=== PATIENT | female | born 1970 | race Caucasian/White ===

== ENCOUNTER 2019-07-21 08:39 | Emergency (ER) | payer BC, OTHER ==
--- NOTE | 2019-07-21 09:31 | EDM.PDOC ---
ED HPI GENERAL MEDICAL PROBLEM - General Chief Complaint: Cardiovascular Problem Stated Complaint: FAST HEART RATE Time Seen by Provider: 07/21/19 08:45 Source of Information: Reports: Patient, RN Notes Reviewed - History of Present Illness INITIAL COMMENTS - FREE TEXT/NARRATIVE: 48 yr old female with intermitent palpitations for the last month or so worse last PM and during the night. She has had some palpitations this AM but now better after taking AM meds awhile ago. She has also been having dyspnea off and on, had a coughing spell last evening, coughed up some clear phlegm but no further coughing after that. No fever, chills, sore throat or sinus problems. She did have severe L back pain last evening that does continue this AM but less severe. Hx Htn. She is not diabetic and does not smoke. Left Middle Back Pain Score (Numeric/FACES): 8 - Related Data Allergies Allergy/AdvReac Type Severity Reaction Status Date / Time meperidine [From Demerol] Allergy Itching Verified 08/04/16 22:52 Penicillins Allergy Rash Verified 08/04/16 22:52 prochlorperazine Allergy Seizure Verified 08/04/16 22:52 [From Compazine] rizatriptan [From Maxalt] Allergy Swollen Verified 07/21/19 09:08 Tongue Home Meds: Home Meds Amitriptyline [Elavil] 25 mg PO BEDTIME 08/04/16 [History] Aspirin 81 mg PO DAILY 08/04/16 [History] Cholecalciferol (Vitamin D3) [Vitamin D3] 1,000 unit PO DAILY 08/04/16 [History] Cranberry 500 mg PO DAILY 08/04/16 [History] Fish Oil/[place]-3 Fatty Acids [Fish Oil] 1 each PO DAILY 08/04/16 [History] Metoprolol Tartrate [Lopressor] 50 mg PO BID 08/04/16 [History] Zolpidem [Ambien] 10 mg PO BEDTIME 08/04/16 [History] Cyclobenzaprine [Flexeril] 10 mg PO TID PRN #14 tab 07/21/19 [Rx] Hydrocodone/Acetaminophen [Mead 5-325 Tablet] 1 each PO Q6HR PRN #20 tablet [Rx] Venlafaxine [Effexor XR] 37.5 mg PO 07/21/19 [History] Past Medical History HEENT History: Reports: Impaired Vision, Other (See Below) Other HEENT History: c/o difficulty swallowing Cardiovascular History: Reports: Hypertension, Other (See Below) Other Cardiovascular History: [place] Respiratory History: Reports: Asthma Gastrointestinal History: Reports: GERD Psychiatric History: Reports: Anxiety, Depression Other Psychiatric History: sleep disorders Social & Family History - Family History Family Medical History: Noncontributory - Tobacco Use Smoking Status *Q: Never Smoker - Caffeine Use Caffeine Use: Reports: Coffee - Recreational Drug Use Recreational Drug Use: No Drug Use in Last 12 Months: No - Living Situation & Occupation Living situation: Reports: Occupation: Employed ED ROS GENERAL - Review of Systems Review Of Systems: See Below Constitutional: Denies: Fever, Chills HEENT: Denies: Rhinitis, Sinus Problem, Throat Pain Respiratory: Reports: Shortness of Breath, Pleuritic Chest Pain (mild), Cough ( last evening, now gone). Denies: Wheezing Cardiovascular: Reports: Chest Pain, Dyspnea on Exertion, Palpitations GI/Abdominal: Denies: Abdominal Pain, Nausea, Vomiting Musculoskeletal: Reports: Back Pain. Denies: Shoulder Pain, Arm Pain Skin: Reports: No Symptoms Neurological: Denies: Numbness, Tingling, Weakness ED EXAM, GENERAL - Physical Exam Exam: See Below General Appearance: Alert, No Apparent Distress Eye Exam: Bilateral Eye: PERRL Nose: Normal Inspection Throat/Mouth: Normal Inspection, Normal Oropharynx Head: Atraumatic. No: Facial Swelling Neck: Supple, Full Range of Motion. No: Lymphadenopathy (L), Lymphadenopathy (R ) Respiratory/Chest: No Respiratory Distress, Lungs Clear, Normal Breath Sounds. No: Rales, Rhonchi, Wheezing Cardiovascular: Regular Rate, Rhythm GI/Abdominal: Soft, Non-Tender Extremities: Normal Inspection, Normal Range of Motion. No: Leg Pain, Increased Warmth, Redness Neurological: Alert, Oriented, No Motor/Sensory Deficits EKG INTERPRETATION EKG Date: 07/21/19 Rhythm: NSR [place]: Normal P-Wave: Present QRS: Normal ST-T: Normal QT: Normal Course - Vital Signs Last Recorded V/S: Last Vital Signs Temp 97.1 F 07/21/19 08:48 Pulse 80 07/21/19 11:16 Resp 20 07/21/19 11:16 BP 123/86 07/21/19 11:16 Pulse Ox 95 07/21/19 11:16 - Orders/Labs/Meds Orders: Active Orders 24 hr Category Date Time Status EKG 12 Lead [EKG Documentation Completion] [RC] STAT Care 07/21/19 09:21 Active Holter Monitor 48 Hours [RC] .PRN Care 07/21/19 10:43 Active Labs: Laboratory Tests 07/21/19 07/21/19 07/21/19 Range/Units 09:19 09:19 09:19 WBC 6.88 (3.98-10.04) K/mm3 RBC 4.65 (3.98-5.22) M/mm3 Hgb 13.4 (11.2-15.7) gm/dl Hct 39.5 (34.1-44.9) % MCV 84.9 (79.4-94.8) fl MCH 28.8 (25.6-32.2) pg MCHC 33.9 (32.2-35.5) g/dl RDW Std Deviation 40.2 (36.4-46.3) fL Plt Count 308 (182-369) K/mm3 MPV 9.8 (9.4-12.3) fl Neut % (Auto) 54.0 (34.0-71.1) % Lymph % (Auto) 33.9 (19.3-51.7) % [place] % (Auto) 8.7 (4.7-12.5) % Eos % (Auto) 2.9 (0.7-5.8) Baso % (Auto) 0.4 (0.1-1.2) % Neut # (Auto) 3.71 (1.56-6.13) K/mm3 Lymph # (Auto) 2.33 (1.18-3.74) K/mm3 [place] # (Auto) 0.60 H (0.24-0.36) K/mm3 Eos # (Auto) 0.20 (0.04-0.36) K/mm3 Baso # (Auto) 0.03 (0.01-0.08) K/mm3 D-Dimer, Quantitative 0.26 (0.19-0.50) mg/L Sodium 140 (136-145) mEq/L Potassium 3.8 (3.5-5.1) mEq/L Chloride 104 (98-107) mEq/L Carbon Dioxide 26 (21-32) mEq/L Anion Gap 13.8 (5-15) BUN 13 (7-18) mg/dL Creatinine 0.8 (0.55-1.02) mg/dL Est Cr Clr Drug Dosing 81.81 mL/min Estimated GFR (MDRD) > 60 (>60) mL/min BUN/Creatinine Ratio 16.3 (14-18) Glucose 104 (74-106) mg/dL Calcium 9.2 (8.5-10.1) mg/dL Total Bilirubin 0.2 (0.2-1.0) mg/dL AST 18 (15-37) U/L ALT 24 (14-59) U/L Alkaline Phosphatase 71 (46-116) U/L Troponin I < 0.017 (0.00-0.056) ng/mL Total Protein 7.0 (6.4-8.2) g/dl Albumin 3.4 (3.4-5.0) g/dl Globulin 3.6 gm/dL Albumin/Globulin Ratio 0.9 L (1-2) TSH 3rd Generation 2.261 (0.358-3.74) uIU/mL Meds: Medications Discontinued Medications Generic Name Dose Route Start Last Admin Trade Name Yong PRN Reason Stop Dose Admin Acetaminophen 975 mg 07/21/19 10:42 07/21/19 11:01 Tylenol PO 07/21/19 10:43 975 mg NOW ONE Administration Ketorolac Tromethamine 30 mg 07/21/19 10:45 07/21/19 11:01 Toradol IVPUSH 30 mg ONETIME KRISTI Administration - Re-Assessments/Exams Free Text/Narrative Re-Assessment/Exam: 07/21/19 10:50 White blood count normal, d-dimer and troponin also did come back normal. Chest x-ray was good, EKG showed no acute findings. When I did go back to visit with her just a few minutes ago she is having more intense back pain and that is her major symptom at this time. We'll give some Toradol 30 mg IV, Tylenol 975 by mouth. Due to the frequent palpitations will send her home on a 48 hour Holter monitor. Discharge instructions as documented. Departure - Departure Time of Disposition: 10:54 Disposition: Home, Self-Care 01 Condition: Fair Clinical Impression: Palpitations, Atypical chest pain, Back pain Prescriptions: Hydrocodone/Acetaminophen [Mead 5-325 Tablet] 1 each PO Q6HR PRN #20 tablet PRN Reason: Pain Cyclobenzaprine [Flexeril] 10 mg PO TID PRN #14 tab PRN Reason: Muscle Spasm Instructions: Palpitations, [id number] Referrals: PCP,None [Primary Care Provider] - Forms: ED Department Discharge, ED Return to Work/School Form Additional Instructions: Rest back, no heavy lifting, alternate ice and heat as needed, continue Advil or Motrin 3 times daily as needed, you may take Tylenol in between doses for extra pain relief or hydrocodone if needed for severe pain. Flexeril 10 mg 2-3 times daily for muscle spasm as needed. Prescriptions have been sent electronically to [facility] [employer] [facility] 48 hour holter moniter to moniter and record your heart rythm for the next 48 hours. Follow-up with one of our clinic providers early next week for recheck, call [phone] for appointment. Return to ED as needed if symptoms worsening in any way. Sepsis Event Note - Evaluation Sepsis Screening Result: No Definite Risk - Focused Exam Vital Signs: Vital Signs Temp Pulse Resp BP Pulse Ox 07/21/19 11:16 80 20 123/86 95 07/21/19 08:48 97.1 F 83 24 H 124/94 H 95 Date Exam was Performed: 07/21/19 Time Exam was Performed: 12:37 - My Orders Last 24 Hours: My Active Orders 07/21/19 09:21 EKG 12 Lead [EKG Documentation Completion] [RC] STAT 07/21/19 10:43 Holter Monitor 48 Hours [RC] .PRN - Assessment/Plan Last 24 Hours: My Active Orders 07/21/19 09:21 EKG 12 Lead [EKG Documentation Completion] [RC] STAT 07/21/19 10:43 Holter Monitor 48 Hours [RC] .PRN
--- NOTE | 2019-07-21 10:19 | CR ---
Chest: PA and lateral views of the chest were obtained. Comparison: Prior chest x-ray of 08/04/16. Heart size is normal. Tortuous thoracic aorta is seen. Lungs are clear with no acute parenchymal change. Bony structures appear within normal limits for the patient's age. Impression: 1. Nothing acute is appreciated on two-view chest x-ray. Diagnostic code #1 This report was dictated in [place] Standard Time
[2019-07-21] MEDS ORDERED: Acetaminophen 325 MG Tab PO ONE (10:42)
[2019-07-21] MEDS ORDERED: Ketorolac 30 MG/ML SDV IVPUSH SCH (10:45)
[2019-07-21 11:28] VITALS: BP 123/86; PULSE 80
== END 2019-07-21 11:16 | disposition home or self-care (01) ==
LOC: JD.ED 08:39
DX: R07.89 Other chest pain (principal); R00.2 Palpitations; M54.5 Low back pain; I10 Essential (primary) hypertension; Z88.0 Allergy status to penicillin; Z88.8 Allergy status to other drugs, medicaments and biological substances; Z79.82 Long term (current) use of aspirin; Z79.899 Other long term (current) drug therapy
CPT/HCPCS: 36415; 71046; 80053; 84443; 84484; 85025; 85379; 93005; 93225; 93226; 96374; 99285; A9270; J1885; 93010; 99284

== ENCOUNTER 2020-12-23 11:14 | Inpatient (IN) | payer OTHER ==
[2020-12-23] MEDS ORDERED: Sodium Chloride 0.9% 10 ML Syringe FLUSH PRN (11:33)
[2020-12-23] MEDS ORDERED: Dexamethasone 4 MG Tab PO ONE (11:53)
--- NOTE | 2020-12-23 12:03 | EDM.PDOC ---
ED HPI GENERAL MEDICAL PROBLEM - General Chief Complaint: Respiratory Problem Stated Complaint: SOB/COVID+ Time Seen by Provider: 12/23/20 11:33 Source of Information: Reports: Patient, RN Notes Reviewed History Limitations: Reports: No Limitations - History of Present Illness INITIAL COMMENTS - FREE TEXT/NARRATIVE: Patient is a 50-year-old female presenting to the emergency department with complaints of shortness of breath, body aches, fever, cough, headache, and weakness. Symptoms began on December 10. She was diagnosed as Covid positive on December 11. She states symptoms have been consistent since that time. She reports pain with deep breathing as well as violent cough triggered by deep breathing. She has been checking her oxygen saturations at home and report they are between 81 and 86% on room air. On arrival to ER, oxygen saturation was found to be 86% on room air. She was placed on 2 L of oxygen by nasal cannula and is saturating in the low 90s at this time. She denies any chronic respiratory conditions, but does have a history of hypertension and [place] Parkinson's White. She does report diarrhea as well. Headache Pain Score (Numeric/FACES): 7 - Related Data Allergies Allergy/AdvReac Type Severity Reaction Status Date / Time rizatriptan [From Maxalt] Allergy Severe Swollen Verified 12/23/20 11:32 Tongue Penicillins Allergy Intermediate Rash Verified 12/23/20 15:07 meperidine [From Demerol] Allergy Mild Itching Verified 12/23/20 15:07 prochlorperazine AdvReac Severe Seizure Verified 12/23/20 11:32 [From Compazine] Home Meds: Home Meds Amitriptyline [Elavil] 50 mg PO BEDTIME 08/04/16 [History] Aspirin 81 mg PO DAILY 08/04/16 [History] Cholecalciferol (Vitamin D3) [Vitamin D3] 1,000 unit PO DAILY 08/04/16 [History] Cranberry 500 mg PO DAILY 08/04/16 [History] Fish Oil/[place]-3 Fatty Acids [Fish Oil] 1 each PO DAILY 08/04/16 [History] Metoprolol Tartrate [Lopressor] 50 mg PO BID 08/04/16 [History] Zolpidem [Ambien] 10 mg PO BEDTIME PRN 08/04/16 [History] Venlafaxine [Effexor XR] 37.5 mg PO DAILY 07/21/19 [History] estradioL [Estradiol] 1 mg PO DAILY 12/23/20 [History] hydroCHLOROthiazide [Hydrochlorothiazide] 25 mg PO DAILY 12/23/20 [History] Past Medical History HEENT History: Reports: Impaired Vision, Other (See Below) Other HEENT History: c/o difficulty swallowing Cardiovascular History: Reports: Hypertension, Other (See Below) Other Cardiovascular History: Rafael-Parkinson's White Respiratory History: Reports: Asthma Gastrointestinal History: Reports: [employer] History: Reports: Psychiatric History: Reports: Anxiety, Depression Other Psychiatric History: sleep disorders Endocrine/Metabolic History: Reports: Obesity/BMI 30+ - Past Surgical History Female Surgical History: Reports: Section, Hysterectomy Social & Family History - Family History Family Medical History: No Pertinent Family History - Tobacco Use Tobacco Use Status *Q: Never Tobacco User - Caffeine Use Caffeine Use: Reports: Coffee - Recreational Drug Use Recreational Drug Use: No - Living Situation & Occupation Living situation: Reports: Occupation: Employed ED ROS GENERAL - Review of Systems Review Of Systems: See Below Constitutional: Reports: Fever, Chills, Weakness, Fatigue HEENT: Reports: No Symptoms Respiratory: Reports: Shortness of Breath, Pleuritic Chest Pain, Cough, Sputum Cardiovascular: Reports: Chest Pain, Dyspnea on Exertion. Denies: Syncope Endocrine: Reports: No Symptoms GI/Abdominal: Reports: Diarrhea, Nausea. Denies: Abdominal Pain : Reports: No Symptoms. Denies: Dysuria Musculoskeletal: Reports: Other (generalized body aches) Neurological: Reports: Headache Psychiatric: Reports: No Symptoms Hematologic/Lymphatic: Reports: No Symptoms Immunologic: Reports: No Symptoms ED EXAM, GENERAL - Physical Exam Exam: See Below Exam Limited By: No Limitations General Appearance: Alert, WD/WN, No Apparent Distress, Anxious Eye Exam: Bilateral Eye: PERRL Respiratory/Chest: No Respiratory Distress, No Accessory Muscle Use, Chest Non- Tender, Decreased Breath Sounds, Crackles (bilateral bases), Other (shallow respirations) Cardiovascular: Normal Peripheral Pulses, Regular Rate, Rhythm, No Edema, No Gallop, No JVD, No Murmur, No Rub GI/Abdominal: Normal Bowel Sounds, Soft, Non-Tender, No Organomegaly, No Distention, No Abnormal Bruit, No Mass Neurological: Alert, Oriented, CN II-XII Intact, Normal Cognition, Normal Gait, Normal Reflexes, No Motor/Sensory Deficits Psychiatric: Normal Affect, Normal Mood Skin Exam: Warm, Dry, Intact, Normal Color, No Rash #1 Interpretation EKG Date: 12/23/20 Time: 11:25 Rhythm: NSR Rate (Beats/Min): 91 [place]: Normal P-Wave: Present QRS: Normal ST-T: Normal QT: Normal EKG Interpretation Comments: EKG interpreted by Dr. Phipps. Course - Vital Signs Last Recorded V/S: Last Vital Signs Temp 97.9 F 12/24/20 15:39 Pulse 88 12/24/20 20:07 Resp 20 12/24/20 15:39 BP 142/81 H 12/24/20 20:07 Pulse Ox 93 L 12/24/20 20:44 - Orders/Labs/Meds Orders: Medication Orders Acetaminophen (Acetaminophen 325 Mg Tab) 650 mg PO Q4H PRN PRN Reason: Pain (Mild 1-3)/fever Last Admin: 12/24/20 20:11 Dose: 650 mg Documented by: DELIA Albuterol (Albuterol 6.7 Gm Inhaler) 0 gm INH Q2H PRN PRN Reason: SOB/Wheezing Last Admin: 12/24/20 14:59 Dose: 2 puff Documented by: Admin: 12/24/20 08:46 Dose: 2 puff Documented by: Admin: 12/23/20 20:56 Dose: 2 puff Documented by: IVÁN Amitriptyline HCl (Amitriptyline 25 Mg Tab) 50 mg PO BEDTIME [facility] Last Admin: 12/24/20 20:10 Dose: 50 mg Documented by: Admin: 12/23/20 20:24 Dose: 50 mg Documented by: RASHAD Aspirin (Aspirin 81 Mg Tab.Chew) 81 mg PO DAILY [facility] Last Admin: 12/24/20 09:44 Dose: 81 mg Documented by: Admin: 12/23/20 16:47 Dose: 81 mg Documented by: BRIEN Benzonatate (Benzonatate 100 Mg Cap) 200 mg PO TID PRN PRN Reason: Cough Last Admin: 12/23/20 16:46 Dose: 200 mg Documented by: BRIEN Cholecalciferol (Cholecalciferol (Vitamin D3) 5,000 Unit Cap) 5,000 unit PO DAILY [facility] Last Admin: 12/24/20 09:45 Dose: 5,000 unit Documented by: Admin: 12/23/20 16:47 Dose: 5,000 unit Documented by: BRIEN Dexamethasone (Dexamethasone 4 Mg Tab) 6 mg PO DAILY [facility] Stop: 01/01/21 09:01 Last Admin: 12/24/20 09:48 Dose: 6 mg Documented by: KASHIF Docusate Sodium (Docusate Sodium 100 Mg Cap) 100 mg PO BID PRN PRN Reason: Constipation Last Admin: 12/23/20 16:46 Dose: 100 mg Documented by: BRIEN Enoxaparin Sodium (Enoxaparin 40 Mg/0.4 Ml Syringe) 40 mg SUBCUT DAILY [facility] Last Admin: 12/24/20 09:49 Dose: 40 mg Documented by: KASHIF Estradiol (Estradiol 0.5 Mg Tab) 1 mg PO DAILY [facility] Last Admin: 12/24/20 09:45 Dose: 1 mg Documented by: KASHIF Famotidine (Famotidine 20 Mg Tab) 20 mg PO BID [facility] Last Admin: 12/24/20 20:07 Dose: 20 mg Documented by: Admin: 12/24/20 09:47 Dose: 20 mg Documented by: Admin: 12/23/20 20:24 Dose: 20 mg Documented by: RASHAD Guaifenesin/Phenylephrine HCl (Guaifenesin/Dextromethorphan 100-10 Mg/5 Ml Soln 5 Ml Cup) 10 ml PO TID@0700,1400,2100 [facility] Last Admin: 12/24/20 20:12 Dose: 10 ml Documented by: Admin: 12/24/20 14:51 Dose: 10 ml Documented by: Admin: 12/24/20 06:06 Dose: 10 ml Documented by: Admin: 12/23/20 20:22 Dose: 10 ml Documented by: RASHAD Azithromycin 500 mg/ Sodium (Chloride) 250 mls @ 250 mls/hr IV Q24H [facility] Stop: 12/25/20 15:59 Last Admin: 12/24/20 14:52 Dose: 250 mls/hr Documented by: Infusion: 12/23/20 17:40 Dose: 250 mls/hr Documented by: Admin: 12/23/20 16:40 Dose: 250 mls/hr Documented by: BRIEN Insulin Human Lispro (Insulin Lispro 100 Unit/Ml 10 Ml Vial) 0 unit SUBCUT QIDACANDBED [facility]; Protocol Last Admin: 12/24/20 17:42 Dose: 1 unit Documented by: Admin: 12/24/20 12:33 Dose: 1 unit Documented by: Admin: 12/24/20 06:06 Dose: Not Given Documented by: Admin: 12/23/20 21:35 Dose: Not Given Documented by: OLGA Magnesium Hydroxide (Magnesium Hydroxide 400 Mg/5 Ml Susp 30 Ml Cup) 30 ml PO Q12H PRN PRN Reason: Constipation Metoprolol Tartrate (Metoprolol Tartrate 50 Mg Tab) 50 mg PO BID [facility] Last Admin: 12/24/20 20:07 Dose: 50 mg Documented by: Admin: 12/24/20 09:46 Dose: 50 mg Documented by: Admin: 12/23/20 20:23 Dose: 50 mg Documented by: RASHAD Ondansetron HCl (Ondansetron 4 Mg/2 Ml Sdv) 4 mg IV Q6H PRN PRN Reason: Nausea/Vomiting Sodium Chloride (Sodium Chloride 0.9% 10 Ml Syringe) 10 ml FLUSH ASDIRECTED PRN PRN Reason: Keep Vein Open Last Admin: 12/23/20 11:43 Dose: 10 ml Documented by: REA Venlafaxine HCl (Venlafaxine 37.5 Mg Cap.Er) 37.5 mg PO DAILY [facility] Last Admin: 12/24/20 09:44 Dose: 37.5 mg Documented by: KASHIF Zinc Sulfate (Zinc Sulfate 220 Mg Cap) 220 mg PO DAILY [facility] Last Admin: 12/24/20 09:46 Dose: 220 mg Documented by: Admin: 12/23/20 16:46 Dose: 220 mg Documented by: BRIEN Zolpidem Tartrate (Zolpidem 10 Mg Tab) 10 mg PO BEDTIME [facility] Last Admin: 12/24/20 20:07 Dose: 10 mg Documented by: Admin: 12/23/20 20:24 Dose: 10 mg Documented by: RASHAD Labs: Laboratory Tests 12/23/20 12/23/20 12/23/20 Range/Units 11:40 11:40 11:40 WBC 5.68 (3.98-10.04) K/mm3 RBC 4.86 (3.98-5.22) M/mm3 Hgb 13.9 (11.2-15.7) gm/dl Hct 40.4 (34.1-44.9) % MCV 83.1 (79.4-94.8) fl MCH 28.6 (25.6-32.2) pg MCHC 34.4 (32.2-35.5) g/dl RDW Std Deviation 38.2 (36.4-46.3) fL Plt Count 274 (182-369) K/mm3 MPV 9.7 (9.4-12.3) fl Neut % (Auto) 67.2 (34.0-71.1) % Lymph % (Auto) 23.8 (19.3-51.7) % [place] % (Auto) 7.7 (4.7-12.5) % Eos % (Auto) 0.4 L (0.7-5.8) Baso % (Auto) 0.5 (0.1-1.2) % Neut # (Auto) 3.82 (1.56-6.13) K/mm3 Lymph # (Auto) 1.35 (1.18-3.74) K/mm3 [place] # (Auto) 0.44 H (0.24-0.36) K/mm3 Eos # (Auto) 0.02 L (0.04-0.36) K/mm3 Baso # (Auto) 0.03 (0.01-0.08) K/mm3 D-Dimer, Quantitative 0.48 (0.19-0.50) mg/L Sodium 137 (136-145) mEq/L Potassium 3.2 L (3.5-5.1) mEq/L Chloride 97 L (98-107) mEq/L Carbon Dioxide 26 (21-32) mEq/L Anion Gap 17.2 H (5-15) BUN 12 (7-18) mg/dL Creatinine 0.9 (0.55-1.02) mg/dL Est Cr Clr Drug Dosing 71.11 mL/min Estimated GFR (MDRD) > 60 (>60) mL/min BUN/Creatinine Ratio 13.3 L (14-18) Glucose 160 H (70-99) mg/dL Hemoglobin A1c ( - 5.6) % Lactic Acid (0.4-2.0) mmol/L Calcium 8.7 (8.5-10.1) mg/dL Total Bilirubin 0.4 (0.2-1.0) mg/dL AST 43 H (15-37) U/L ALT 29 (14-59) U/L Alkaline Phosphatase 81 (46-116) U/L Troponin I < 0.017 (0.00-0.056) ng/mL C-Reactive Protein 8.8 H* (<1.0) mg/dL NT-Pro-B Natriuret Pep (0-125) pg/mL Total Protein 7.2 (6.4-8.2) g/dl Albumin 2.8 L (3.4-5.0) g/dl Globulin 4.4 gm/dL Albumin/Globulin Ratio 0.6 L (1-2) 12/23/20 12/23/20 12/23/20 Range/Units 11:40 11:40 11:40 WBC (3.98-10.04) K/mm3 RBC (3.98-5.22) M/mm3 Hgb (11.2-15.7) gm/dl Hct (34.1-44.9) % MCV (79.4-94.8) fl MCH (25.6-32.2) pg MCHC (32.2-35.5) g/dl RDW Std Deviation (36.4-46.3) fL Plt Count (182-369) K/mm3 MPV (9.4-12.3) fl Neut % (Auto) (34.0-71.1) % Lymph % (Auto) (19.3-51.7) % [place] % (Auto) (4.7-12.5) % Eos % (Auto) (0.7-5.8) Baso % (Auto) (0.1-1.2) % Neut # (Auto) (1.56-6.13) K/mm3 Lymph # (Auto) (1.18-3.74) K/mm3 [place] # (Auto) (0.24-0.36) K/mm3 Eos # (Auto) (0.04-0.36) K/mm3 Baso # (Auto) (0.01-0.08) K/mm3 D-Dimer, Quantitative (0.19-0.50) mg/L Sodium (136-145) mEq/L Potassium (3.5-5.1) mEq/L Chloride (98-107) mEq/L Carbon Dioxide (21-32) mEq/L Anion Gap (5-15) BUN (7-18) mg/dL Creatinine (0.55-1.02) mg/dL Est Cr Clr Drug Dosing mL/min Estimated GFR (MDRD) (>60) mL/min BUN/Creatinine Ratio (14-18) Glucose (70-99) mg/dL Hemoglobin A1c 6.5 H ( - 5.6) % Lactic Acid 3.1 H* (0.4-2.0) mmol/L Calcium (8.5-10.1) mg/dL Total Bilirubin (0.2-1.0) mg/dL AST (15-37) U/L ALT (14-59) U/L Alkaline Phosphatase (46-116) U/L Troponin I (0.00-0.056) ng/mL C-Reactive Protein (<1.0) mg/dL NT-Pro-B Natriuret Pep 34 (0-125) pg/mL Total Protein (6.4-8.2) g/dl Albumin (3.4-5.0) g/dl Globulin gm/dL Albumin/Globulin Ratio (1-2) Meds: Medications Generic Name Dose Route Start Last Admin Trade Name Freq PRN Reason Stop Dose Admin Acetaminophen 650 mg 12/23/20 14:38 12/24/20 20:11 Acetaminophen 325 Mg Tab PO 650 mg Q4H PRN Administration Pain (Mild 1-3)/fever Albuterol 0 gm 12/23/20 15:02 12/24/20 14:59 Albuterol 6.7 Gm Inhaler INH 2 puff Q2H PRN Administration SOB/Wheezing Amitriptyline HCl 50 mg 12/23/20 21:00 12/24/20 20:10 Amitriptyline 25 Mg Tab PO 50 mg BEDTIME KRISTI Administration Aspirin 81 mg 12/23/20 15:30 12/24/20 09:44 Aspirin 81 Mg Tab.Chew PO 81 mg DAILY KRISTI Administration Benzonatate 200 mg 12/23/20 15:14 12/23/20 16:46 Benzonatate 100 Mg Cap PO 200 mg TID PRN Administration Cough Cholecalciferol 5,000 unit 12/23/20 15:30 12/24/20 09:45 Cholecalciferol (Vitamin D3) 5,000 Unit Cap PO 5,000 unit DAILY KRISTI Administration Dexamethasone 6 mg 12/24/20 09:00 12/24/20 09:48 Dexamethasone 4 Mg Tab PO 01/01/21 09:01 6 mg DAILY KRISTI Administration Docusate Sodium 100 mg 12/23/20 14:38 12/23/20 16:46 Docusate Sodium 100 Mg Cap PO 100 mg BID PRN Administration Constipation Enoxaparin Sodium 40 mg 12/24/20 09:00 12/24/20 09:49 Enoxaparin 40 Mg/0.4 Ml Syringe SUBCUT 40 mg DAILY KRISTI Administration Estradiol 1 mg 12/24/20 09:00 12/24/20 09:45 Estradiol 0.5 Mg Tab PO 1 mg DAILY KRISTI Administration Famotidine 20 mg 12/23/20 21:00 12/24/20 20:07 Famotidine 20 Mg Tab PO 20 mg BID KRISTI Administration Guaifenesin/Phenylephrine HCl 10 ml 12/23/20 21:00 12/24/20 20:12 Guaifenesin/Dextromethorphan 100-10 Mg/5 Ml Soln 5 Ml Cup PO 10 ml TID@0700,1400,2100 KRISTI Administration Azithromycin 500 mg/ Sodium 250 mls @ 250 mls/hr 12/23/20 15:00 12/24/20 14:52 Chloride IV 12/25/20 15:59 250 mls/hr Q24H KRISTI Administration Insulin Human Lispro 0 unit 12/23/20 22:00 12/24/20 17:42 Insulin Lispro 100 Unit/Ml 10 Ml Vial SUBCUT 1 unit QIDACANDBED KRISTI Administration Protocol Magnesium Hydroxide 30 ml 12/23/20 14:38 Magnesium Hydroxide 400 Mg/5 Ml Susp 30 Ml Cup PO Q12H PRN Constipation Metoprolol Tartrate 50 mg 12/23/20 21:00 12/24/20 20:07 Metoprolol Tartrate 50 Mg Tab PO 50 mg BID KRISTI Administration Ondansetron HCl 4 mg 12/23/20 14:38 Ondansetron 4 Mg/2 Ml Sdv IV Q6H PRN Nausea/Vomiting Sodium Chloride 10 ml 12/23/20 11:33 12/23/20 11:43 Sodium Chloride 0.9% 10 Ml Syringe FLUSH 10 ml ASDIRECTED PRN Administration Keep Vein Open Venlafaxine HCl 37.5 mg 12/24/20 09:00 12/24/20 09:44 Venlafaxine 37.5 Mg Cap.Er PO 37.5 mg DAILY KRISTI Administration Zinc Sulfate 220 mg 12/23/20 15:30 12/24/20 09:46 Zinc Sulfate 220 Mg Cap PO 220 mg DAILY KRISTI Administration Zolpidem Tartrate 10 mg 12/23/20 21:00 12/24/20 20:07 Zolpidem 10 Mg Tab PO 10 mg BEDTIME KRISTI Administration Discontinued Medications Generic Name Dose Route Start Last Admin Trade Name Freq PRN Reason Stop Dose Admin Acetaminophen 975 mg 12/23/20 13:44 12/23/20 14:17 Acetaminophen 325 Mg Tab PO 12/23/20 13:45 975 mg NOW ONE Administration Dexamethasone 4 mg 12/23/20 11:53 12/23/20 12:42 Dexamethasone 4 Mg Tab PO 12/23/20 11:54 4 mg ONETIME ONE Administration Potassium Chloride/Sodium Chloride 1,000 mls @ 100 mls/hr 12/23/20 13:15 12/24/20 02:40 Normal Saline With 40 Meq Kcl IV 100 mls/hr ASDIRECTED KRISTI Administration Sodium Chloride 500 mls @ 999 mls/hr 12/23/20 14:49 12/23/20 16:35 Normal Saline IV 12/23/20 15:19 999 mls/hr .BOLUS ONE Administration - Re-Assessments/Exams Free Text/Narrative Re-Assessment/Exam: Patient is a 50-year-old female presenting to the emergency department with an approximate 2-week history of Covid symptoms. She reports feeling short of breath, chest pain with deep breathing, fever, chills, nausea, diarrhea, weakness, and fatigue. She was diagnosed Covid positive on December 11. Symptoms have been consistent since the . On exam, she does have shallow respirations with crackles in her bilateral bases. Oxygen saturation was 86% on room air. She is certainly currently saturating 93% on 2 L of oxygen by nasal cannula. Given her hypoxia, I anticipate admission to the hospital. I have ordered blood work, chest x-ray, EKG, and dexamethasone 4 mg p.o. 12/23/20 13:30 Hematology was significant for a potassium low at 3.2, chloride low at 97, anion gap low at 17.2, lactic acid elevated 3.1, AST 43, CRP 8.8. D-dimer was normal. Chest x-ray shows patchy areas of increased density within the chest compatible with Covid pneumonia. Patient is maintaining oxygen saturations in the low to mid 90s on 2 L of oxygen. I have ordered saline with 40 mill equivalents of KCl 100 mils per hour. Case discussed with hospitalist, Dr. Crowe. He will have [facility] will come over to see the patient and plan for admission. 12/23/20 13:45 Patient is complaining of a headache. I ordered Tylenol 975 mg to be given now. Departure - Departure Time of Disposition: 13:30 Disposition: Admitted As Inpatient 64 Condition: Fair Clinical Impression: Pneumonia due to COVID-19 virus, Hypoxia - Discharge Information Sepsis Event Note (ED) - Evaluation Sepsis Screening Result: No Definite Risk
--- NOTE | 2020-12-23 12:45 | CR ---
Chest: Portable view of the chest was obtained. Comparison: Prior chest x-ray of 07/21/19. Patchy areas of increased density are seen within the left lower lung as well as diffusely within the right lung. Heart size is normal. Tortuous thoracic aorta is seen. No acute osseous abnormality is appreciated. Impression: 1. Patchy areas of increased density within the chest compatible with Covid pneumonia. Diagnostic code #3
[2020-12-23] MEDS: Sodium Chloride 0.9% with KCl 1,000 ML IV SCH (13:34)
--- NOTE | 2020-12-23 13:43 | PCM.HP.2 ---
<Teddy Aguilar - Last Filed: 12/23/20 15:07> H&P History of Present Illness - General Date of Service: 12/23/20 Admit Problem/Dx: Hypoxia Source of Information: Patient, Old Records, Provider, RN, RN Notes Reviewed History Limitations: Reports: No Limitations - History of Present Illness Initial Comments - Free Text/Narative: This is a 50-year-old female presents to ED on 12/23/2020 with shortness of breath, body aches, fever, cough, headache, and weakness. She reports symptoms began on December 10 and she was subsequently tested and positive for Covid pneumonia on December 11. She states symptoms have been constant since then and getting worse. She reports pain with deep inspiration and a productive cough. She reports saturations at home of been between 81-86 percent on room air. In the ED she was noted to have saturations of 86% on room air was placed on 2 L of oxygen whi ch improved her saturations to the low 90s. She reports she was having nausea and diarrhea but this has resolved. Denies any chronic respiratory conditions. In the ED twelve-lead EKG is obtained showing a sinus rhythm at 91 bpm. Temp is 97.6 Fahrenheit. Pulse 89. Respirations 20. Blood pressure 115/86. Labs were obtained showing a WBC of 5.68. Hemoglobin 13.9. Platelet 274,000. Neutroph ils are within normal limits at 67.2. D-dimer is 0.48. Sodium is 137. Potassium 3.2. Chloride 97. Carbon dioxide 26. Anion gap is 17.2. BUN is 12. Creatinine 0.9. GFR is greater than 60. Glucose is 160. Calcium 8.7. Bilirubin 0.4. AST is 43, ALT 29, alkaline phosphatase 81. Troponin is less than 0.017. CRP is 8.8. Albumin is low at 2.8. Lactic acid is high at 3.1. proBNP is 34. Chest x-ray is obtained showing patchy areas of increased density within the chest compatible with Covid pneumonia. She is given Tylenol for headache as well as 4 mg p.o. dexamethasone. She will started on NS plus K at 100 mils an hour. She carries a history of hypertension, Argueta Parkinson's white, asthma, GERD, anxiety, depression, sleep disorder, obesity. She was never a smoker. She is a full code. She is subsequently admitted to the medical floor on telemetry for management of her COVID-19 pneumonia and symptoms. Her PCP is Melina Raman NP. Headache Pain Score (Numeric/FACES): 7 - Related Data Allergies/Adverse Reactions: Allergies Allergy/AdvReac Type Severity Reaction Status Date / Time rizatriptan [From Maxalt] Allergy Severe Swollen Verified 12/23/20 11:32 Tongue Penicillins Allergy Intermediate Rash Verified 12/23/20 15:07 meperidine [From Demerol] Allergy Mild Itching Verified 12/23/20 15:07 prochlorperazine AdvReac Severe Seizure Verified 12/23/20 11:32 [From Compazine] Home Medications: Home Meds Amitriptyline [Elavil] 50 mg PO BEDTIME 08/04/16 [History] Aspirin 81 mg PO DAILY 08/04/16 [History] Cholecalciferol (Vitamin D3) [Vitamin D3] 1,000 unit PO DAILY 08/04/16 [History] Cranberry 500 mg PO DAILY 08/04/16 [History] Fish Oil/[place]-3 Fatty Acids [Fish Oil] 1 each PO DAILY 08/04/16 [History] Metoprolol Tartrate [Lopressor] 50 mg PO BID 08/04/16 [History] Zolpidem [Ambien] 10 mg PO BEDTIME 08/04/16 [History] Venlafaxine [Effexor XR] 37.5 mg PO DAILY 07/21/19 [History] estradioL [Estradiol] 1 mg PO DAILY 12/23/20 [History] hydroCHLOROthiazide [Hydrochlorothiazide] 25 mg PO DAILY 12/23/20 [History] Past Medical History HEENT History: Reports: Impaired Vision, Other (See Below) Other HEENT History: c/o difficulty swallowing Cardiovascular History: Reports: Hypertension, Other (See Below) Other Cardiovascular History: Rafael-Parkinson's White Respiratory History: Reports: Asthma Gastrointestinal History: Reports: GERD [employer] History: Reports: Psychiatric History: Reports: Anxiety, Depression Other Psychiatric History: sleep disorders Endocrine/Metabolic History: Reports: Obesity/BMI 30+ - Past Surgical History Female Surgical History: Reports: Section, Hysterectomy Social & Family History - Family History Family Medical History: No Pertinent Family History - Tobacco Use Tobacco Use Status *Q: Never Tobacco User - Caffeine Use Caffeine Use: Reports: Coffee - Recreational Drug Use Recreational Drug Use: No - Living Situation & Occupation Living situation: Reports: Occupation: Employed H&P Review of Systems - Review of Systems: Review Of Systems: See Below General: Reports: Fever, Chills, Malaise, Weakness, Fatigue, Decreased Appetite HEENT: Reports: Headaches. Denies: Sore Throat Pulmonary: Reports: Shortness of Breath, Pleuritic Chest Pain, Cough, Sputum. Denies: Wheezing, Hemoptysis Cardiovascular: Reports: Chest Pain (with coughing ), Dyspnea on Exertion. Denies: Palpitations, Edema, Lightheadedness Gastrointestinal: Reports: Decreased Appetite. Denies: Abdominal Pain, Diarrhea (none currently ), Nausea (none currently ), Vomiting Genitourinary: Reports: No Symptoms. Denies: Pain Musculoskeletal: Reports: No Symptoms, Muscle Pain (Generalized ) Skin: Reports: No Symptoms. Denies: Cyanosis Psychiatric: Reports: No Symptoms. Denies: Confusion Neurological: Reports: No Symptoms, Weakness. Denies: Confusion, Dizziness, Numbness, Pre-Existing Deficit, Seizure, Syncope, Tingling, Tremors, Trouble Speaking, Difficulty Walking, Change in Speech, Gait Disturbance Hematologic/Lymphatic: Reports: No Symptoms Immunologic: Reports: No Symptoms Exam - Exam Exam: See Below - Vital Signs Vital Signs: Last Vital Signs Temp 97.6 F 12/23/20 11:28 Pulse 89 12/23/20 12:15 Resp 20 12/23/20 12:15 BP 115/86 12/23/20 12:15 Pulse Ox 92 L 12/23/20 12:15 Weight: 109.543 kg - Exam Quality Assessment: Supplemental Oxygen (2L), DVT Prophylaxis. No: Urinary Catheter General: Alert, Oriented, Cooperative, Mild Distress (Looks uncomfortable ) HEENT: Conjunctiva Clear, EACs Clear, Posterior Pharynx Clear. No: Mucosa Moist & Tonsina (Dry ) Neck: Supple, Trachea Midline Lungs: Normal Respiratory Effort, Decreased Breath Sounds, Crackles (bilateral bases ) Cardiovascular: Regular Rate, Regular Rhythm GI/Abdominal Exam: Normal Bowel Sounds, Soft, Non-Tender, No Distention (Female) Exam: Deferred Rectal (Female) Exam: Deferred Back Exam: Normal Inspection, Full Range of Motion Extremities: Normal Inspection, Normal Range of Motion, Non-Tender, No Pedal Edema, Normal Capillary Refill Peripheral Pulses: 3+: Radial (L), Radial (R), Dorsalis Pedis (L), Dorsalis Pedis (R) Skin: Warm, Dry, Intact Neurological: Cranial Nerves Intact (Grossly ) Psychiatric: Alert, Anxious - Patient Data Lab Results Last 24 hrs: Laboratory Results - last 24 hr 12/23/20 12/23/20 12/23/20 Range/Units 11:40 11:40 11:40 WBC 5.68 (3.98-10.04) K/mm3 RBC 4.86 (3.98-5.22) M/mm3 Hgb 13.9 (11.2-15.7) gm/dl Hct 40.4 (34.1-44.9) % MCV 83.1 (79.4-94.8) fl MCH 28.6 (25.6-32.2) pg MCHC 34.4 (32.2-35.5) g/dl RDW Std Deviation 38.2 (36.4-46.3) fL Plt Count 274 (182-369) K/mm3 MPV 9.7 (9.4-12.3) fl Neut % (Auto) 67.2 (34.0-71.1) % Lymph % (Auto) 23.8 (19.3-51.7) % Elbert % (Auto) 7.7 (4.7-12.5) % Eos % (Auto) 0.4 L (0.7-5.8) Baso % (Auto) 0.5 (0.1-1.2) % Neut # (Auto) 3.82 (1.56-6.13) K/mm3 Lymph # (Auto) 1.35 (1.18-3.74) K/mm3 Elbert # (Auto) 0.44 H (0.24-0.36) K/mm3 Eos # (Auto) 0.02 L (0.04-0.36) K/mm3 Baso # (Auto) 0.03 (0.01-0.08) K/mm3 D-Dimer, Quantitative 0.48 (0.19-0.50) mg/L Sodium 137 (136-145) mEq/L Potassium 3.2 L (3.5-5.1) mEq/L Chloride 97 L (98-107) mEq/L Carbon Dioxide 26 (21-32) mEq/L Anion Gap 17.2 H (5-15) BUN 12 (7-18) mg/dL Creatinine 0.9 (0.55-1.02) mg/dL Est Cr Clr Drug Dosing 71.11 mL/min Estimated GFR (MDRD) > 60 (>60) mL/min BUN/Creatinine Ratio 13.3 L (14-18) Glucose 160 H (70-99) mg/dL Lactic Acid (0.4-2.0) mmol/L Calcium 8.7 (8.5-10.1) mg/dL Total Bilirubin 0.4 (0.2-1.0) mg/dL AST 43 H (15-37) U/L ALT 29 (14-59) U/L Alkaline Phosphatase 81 (46-116) U/L Troponin I < 0.017 (0.00-0.056) ng/mL C-Reactive Protein 8.8 H* (<1.0) mg/dL NT-Pro-B Natriuret Pep (0-125) pg/mL Total Protein 7.2 (6.4-8.2) g/dl Albumin 2.8 L (3.4-5.0) g/dl Globulin 4.4 gm/dL Albumin/Globulin Ratio 0.6 L (1-2) 12/23/20 12/23/20 Range/Units 11:40 11:40 WBC (3.98-10.04) K/mm3 RBC (3.98-5.22) M/mm3 Hgb (11.2-15.7) gm/dl Hct (34.1-44.9) % MCV (79.4-94.8) fl MCH (25.6-32.2) pg MCHC (32.2-35.5) g/dl RDW Std Deviation (36.4-46.3) fL Plt Count (182-369) K/mm3 MPV (9.4-12.3) fl Neut % (Auto) (34.0-71.1) % Lymph % (Auto) (19.3-51.7) % Elbert % (Auto) (4.7-12.5) % Eos % (Auto) (0.7-5.8) Baso % (Auto) (0.1-1.2) % Neut # (Auto) (1.56-6.13) K/mm3 Lymph # (Auto) (1.18-3.74) K/mm3 Elbert # (Auto) (0.24-0.36) K/mm3 Eos # (Auto) (0.04-0.36) K/mm3 Baso # (Auto) (0.01-0.08) K/mm3 D-Dimer, Quantitative (0.19-0.50) mg/L Sodium (136-145) mEq/L Potassium (3.5-5.1) mEq/L Chloride (98-107) mEq/L Carbon Dioxide (21-32) mEq/L Anion Gap (5-15) BUN (7-18) mg/dL Creatinine (0.55-1.02) mg/dL Est Cr Clr Drug Dosing mL/min Estimated GFR (MDRD) (>60) mL/min BUN/Creatinine Ratio (14-18) Glucose (70-99) mg/dL Lactic Acid 3.1 H* (0.4-2.0) mmol/L Calcium (8.5-10.1) mg/dL Total Bilirubin (0.2-1.0) mg/dL AST (15-37) U/L ALT (14-59) U/L Alkaline Phosphatase (46-116) U/L Troponin I (0.00-0.056) ng/mL C-Reactive Protein (<1.0) mg/dL NT-Pro-B Natriuret Pep 34 (0-125) pg/mL Total Protein (6.4-8.2) g/dl Albumin (3.4-5.0) g/dl Globulin gm/dL Albumin/Globulin Ratio (1-2) Result Diagrams: 12/23/20 11:40 12/23/20 11:40 Sepsis Event Note - Evaluation Sepsis Screening Result: Severe Sepsis Risk - Focused Exam Vital Signs: Vital Signs Temp Pulse Resp BP Pulse Ox Pulse Ox 12/23/20 12:15 89 20 115/86 92 L 12/23/20 11:35 88 L 12/23/20 11:28 97.6 F 90 20 142/82 H 86 L - Problem List (1) Pneumonia due to COVID-19 virus SNOMED Code(s): 694179347972422702 ICD Code: U07.1 - COVID-19; J12.82 - PNEUMONIA DUE TO CORONAVIRUS DISEASE 2019 Status: Acute Current Visit: Yes (2) Lactic acidosis SNOMED Code(s): 37717044 ICD Code: E87.2 - ACIDOSIS Status: Acute Current Visit: Yes (3) Hypoxia SNOMED Code(s): 770046521 ICD Code: R09.02 - HYPOXEMIA Status: Acute Current Visit: Yes (4) Acute respiratory distress SNOMED Code(s): 853441321 ICD Code: R06.03 - ACUTE RESPIRATORY DISTRESS Status: Acute Current Visit: Yes (5) Hypoalbuminemia SNOMED Code(s): 948168684 ICD Code: E88.09 - OTH DISORDERS OF PLASMA-PROTEIN METABOLISM, NEC Status: Acute Current Visit: Yes (6) High anion gap metabolic acidosis SNOMED Code(s): 98045744 ICD Code: E87.2 - ACIDOSIS Status: Acute Current Visit: Yes (7) Hypokalemia SNOMED Code(s): 88837193 ICD Code: E87.6 - HYPOKALEMIA Status: Acute Current Visit: Yes (8) Hyperglycemia SNOMED Code(s): 07110204 ICD Code: R73.9 - HYPERGLYCEMIA, UNSPECIFIED Status: Acute Current Visit: Yes (9) Elevated C-reactive protein (CRP) SNOMED Code(s): 993637672936284 ICD Code: R79.82 - ELEVATED C-REACTIVE PROTEIN (CRP) Status: Acute Current Visit: Yes (10) Atypical chest pain SNOMED Code(s): 165700940 ICD Code: R07.89 - OTHER CHEST PAIN Status: Acute Current Visit: No (11) HTN (hypertension) SNOMED Code(s): 36372027 ICD Code: I10 - ESSENTIAL (PRIMARY) HYPERTENSION Status: Chronic Priority: Medium Current Visit: No Qualifiers: Hypertension type: unspecified Qualified Code(s): I10 - Essential (primary) hypertension (12) WPW (Xqlhc-Dnuofadjg-Zaihg syndrome) SNOMED Code(s): 60396923 ICD Code: I45.6 - PRE-EXCITATION SYNDROME Status: Chronic Priority: Medium Current Visit: No (13) Asthma SNOMED Code(s): 121614439 ICD Code: J45.909 - UNSPECIFIED ASTHMA, UNCOMPLICATED Status: Chronic P riority: Medium Current Visit: No Qualifiers: Asthma severity: unspecified severity Asthma persistence: unspecified Asthma complication type: unspecified Qualified Code(s): J45.909 - Unspecified asthma, uncomplicated (14) GERD (gastroesophageal reflux disease) SNOMED Code(s): 065153364 ICD Code: K21.9 - GASTRO-ESOPHAGEAL REFLUX DISEASE WITHOUT ESOPHAGITIS Status: Chronic Priority: Low Current Visit: No Qualifiers: Esophagitis presence: esophagitis presence not specified Qualified Code(s): K21.9 - Gastro-esophageal reflux disease without esophagitis (15) Anxiety SNOMED Code(s): 03915012 ICD Code: F41.9 - ANXIETY DISORDER, UNSPECIFIED Status: Chronic Priority: Medium Current Visit: Yes (16) Depression SNOMED Code(s): 27651404 ICD Code: F32.9 - MAJOR DEPRESSIVE DISORDER, SINGLE EPISODE, UNSPECIFIED Status: Chronic Priority: Low Current Visit: No Qualifiers: Depression Type: other depression Qualified Code(s): F32.89 - Other specified depressive episodes (17) Sleep disorder SNOMED Code(s): 19375518 ICD Code: G47.9 - SLEEP DISORDER, UNSPECIFIED Status: Chronic Priority: Low Current Visit: No (18) Obesity (BMI 30-39.9) SNOMED Code(s): 827697222, 193873463 ICD Code: E66.9 - OBESITY, UNSPECIFIED Status: Chronic Priority: Low Current Visit: No Problem List Initiated/Reviewed/Updated: Yes Orders Last 24hrs: Active Orders 24 hr Category Date Time Status Cardiac Monitoring [RC] . DIRECTED Care 12/23/20 11:36 Active EKG Documentation Completion [RC] STAT Care 12/23/20 11:34 Active Oxygen Therapy [RC] ASDIRECTED Care 12/23/20 11:35 Active Peripheral IV Care [RC] . DIRECTED Care 12/23/20 11:34 Active Sodium Chloride 0.9% [Saline Flush] Med 12/23/20 11:33 Active 10 ml FLUSH ASDIRECTED PRN Sodium Chloride 0.9% with KCl [Normal Saline with 40 Med 12/23/20 13:15 Active mEq KCl] 1,000 ml IV ASDIRECTED Peripheral IV Insertion Adult [OM.PC] Stat Oth 12/23/20 11:33 Ordered Medication Orders Potassium Chloride/Sodium Chloride (Normal Saline With 40 Meq Kcl) 1,000 mls @ 100 mls/hr IV ASDIRECTED KRISTI Last Admin: 12/23/20 13:34 Dose: 100 mls/hr Documented by: REA Sodium Chloride (Sodium Chloride 0.9% 10 Ml Syringe) 10 ml FLUSH ASDIRECTED PRN PRN Reason: Keep Vein Open Last Admin: 12/23/20 11:43 Dose: 10 ml Documented by: REA Assessment/Plan Comment:: Assessment: Day of admission - 12/23/2020 * 50-year-old female presents to ED with SOP, body aches, fever, cough, headache, weakness * Reports symptoms began on December 10 and she was diagnosed with Covid on December 11. * Reports baseline oxygen saturations of 81-86 at home on room air * Saturations noted to be 86 on room air in the ED. Was placed on 2 L with saturations in the low 90s. * History of hypertension, Ncrnm-Xoeqmjorm-Wpluh syndrome, asthma, GERD, anxiety, depression, sleep disorder, obesity * Twelve-lead EKG shows sinus rhythm at 91 bpm * Chest x-ray shows bilateral infiltrates consistent with COVID pneumonia * Labs in ED: * WBC 5.68 * hemoglobin 13.9 * Platelet 274,000 * Neutrophils 67.2% * D-dimer 0.48 * Sodium 137 * Potassium 3.2 * Chloride 97 * Carbon dioxide 26 * Anion gap 17.2 * BUN 12, creatinine 0.9, GFR greater than 60 * Glucose 160 * Total bilirubin 0.4 * AST 43, ALT 29, alkaline phosphatase 81 * Troponin less than 0.017 * CRP 8.8 * Albumin 2.8 * Lactic acid 3.1 * proBNP 34 * She is given Tylenol for headache and 4 mg dexamethasone. She is also started on 100 mils an hour of sodium chloride with 40 mill equivalents KCl. * Subsequently admitted to the medical floor for management of COVID-19 pneumonia symptoms. PLAN: Pneumonia due to COVID-19 virus Hypoxia Acute respiratory distress Elevated C-reactive protein (CRP) Atypical chest pain Asthma * Airborne/Contact precautions * Unfortunately is outside window for remdesivir so will hold off for now * Azithromycin - day 13 * Dexamethasone - day 08/11 * IS/Acapella * Prone whenever able * Telemetry * Continuous pulse oximeter * RT consultation * PRN albuterol neb * ASA 81 mg daily * Vitamin D 5000 units daily * Zinc supplementation * Start pepcid 20mg BID * O2 as needed with goal saturations of 88-95% * Monitor daily labs * D-Dimer Q48hr * Check vitamin D level * Ambulate around room * Will hold off PT/OT for now * Pain medications as needed * Cough suppressants as ordered * Check procalcitonin Lactic acidosis * It is felt patient is not septic as she does not appear to have bacterial infection * IV fluids * Re-check * Check procalcitonin Hypoalbuminemia Obesity (BMI 30-39.9) * It Instructor consultation High anion gap metabolic acidosis * IV fluids as ordered Hypokalemia * Supplement * Check magnesium level * Re-check in AM Hyperglycemia * Check A1C * Anticipate rise in blood glucose readings due to steroid * Check blood glucose readings BID HTN (hypertension) WPW (Nmtrz-Piqfsmnzq-Obhrn syndrome) * No acute concerns * Telemetry * Monitor vital signs GERD (gastroesophageal reflux disease) * Pepcid BID Anxiety Depression Sleep disorder * Continue home Effexor, Ambien, Elavil Code status: Full code PCP: Melina Raman NP DVT prophylaxis: Lovenox Disposition: Admit to medical floor on telemetry for management of COVID-19 pneumonia symptoms. Anticipated length of stay 3 to 4 days. - Mortality Measure Prognosis:: Good <Yeison Crowe - Last Filed: 12/23/20 17:03> H&P History of Present Illness - General Admit Problem/Dx: Admission Diagnosis/Problem Admission Diagnosis/Problem Hypoxia - History of Present Illness Initial Comments - Free Text/Narative: I have seen and examined the patient independently of Teddy Aguilar PA-C, and have discussed the case with him. I have reviewed plan as outlined by him. I agree with the orders as outlined by him. Please see orders. Exam - Vital Signs Vital Signs: Last Vital Signs Temp 36.7 C 12/23/20 15:03 Pulse 83 12/23/20 15:07 Resp 24 H 12/23/20 15:03 BP 132/80 12/23/20 15:07 Pulse Ox 93 L 12/23/20 15:07 - Patient Data Lab Results Last 24 hrs: Laboratory Results - last 24 hr 12/23/20 12/23/20 12/23/20 Range/Units 11:40 11:40 11:40 WBC 5.68 (3.98-10.04) K/mm3 RBC 4.86 (3.98-5.22) M/mm3 Hgb 13.9 (11.2-15.7) gm/dl Hct 40.4 (34.1-44.9) % MCV 83.1 (79.4-94.8) fl MCH 28.6 (25.6-32.2) pg MCHC 34.4 (32.2-35.5) g/dl RDW Std Deviation 38.2 (36.4-46.3) fL Plt Count 274 (182-369) K/mm3 MPV 9.7 (9.4-12.3) fl Neut % (Auto) 67.2 (34.0-71.1) % Lymph % (Auto) 23.8 (19.3-51.7) % Elbert % (Auto) 7.7 (4.7-12.5) % Eos % (Auto) 0.4 L (0.7-5.8) Baso % (Auto) 0.5 (0.1-1.2) % Neut # (Auto) 3.82 (1.56-6.13) K/mm3 Lymph # (Auto) 1.35 (1.18-3.74) K/mm3 Elbert # (Auto) 0.44 H (0.24-0.36) K/mm3 Eos # (Auto) 0.02 L (0.04-0.36) K/mm3 Baso # (Auto) 0.03 (0.01-0.08) K/mm3 D-Dimer, Quantitative 0.48 (0.19-0.50) mg/L Sodium 137 (136-145) mEq/L Potassium 3.2 L (3.5-5.1) mEq/L Chloride 97 L (98-107) mEq/L Carbon Dioxide 26 (21-32) mEq/L Anion Gap 17.2 H (5-15) BUN 12 (7-18) mg/dL Creatinine 0.9 (0.55-1.02) mg/dL Est Cr Clr Drug Dosing 71.11 mL/min Estimated GFR (MDRD) > 60 (>60) mL/min BUN/Creatinine Ratio 13.3 L (14-18) Glucose 160 H (70-99) mg/dL Hemoglobin A1c ( - 5.6) % Lactic Acid (0.4-2.0) mmol/L Calcium 8.7 (8.5-10.1) mg/dL Magnesium (1.8-2.4) mg/dL Total Bilirubin 0.4 (0.2-1.0) mg/dL AST 43 H (15-37) U/L ALT 29 (14-59) U/L Alkaline Phosphatase 81 (46-116) U/L Troponin I < 0.017 (0.00-0.056) ng/mL C-Reactive Protein 8.8 H* (<1.0) mg/dL NT-Pro-B Natriuret Pep (0-125) pg/mL Total Protein 7.2 (6.4-8.2) g/dl Albumin 2.8 L (3.4-5.0) g/dl Globulin 4.4 gm/dL Albumin/Globulin Ratio 0.6 L (1-2) Vitamin D 25-Hydroxy (30.0-100.0) ng/ml 12/23/20 12/23/20 12/23/20 Range/Units 11:40 11:40 11:40 WBC (3.98-10.04) K/mm3 RBC (3.98-5.22) M/mm3 Hgb (11.2-15.7) gm/dl Hct (34.1-44.9) % MCV (79.4-94.8) fl MCH (25.6-32.2) pg MCHC (32.2-35.5) g/dl RDW Std Deviation (36.4-46.3) fL Plt Count (182-369) K/mm3 MPV (9.4-12.3) fl Neut % (Auto) (34.0-71.1) % Lymph % (Auto) (19.3-51.7) % Elbert % (Auto) (4.7-12.5) % Eos % (Auto) (0.7-5.8) Baso % (Auto) (0.1-1.2) % Neut # (Auto) (1.56-6.13) K/mm3 Lymph # (Auto) (1.18-3.74) K/mm3 Elbert # (Auto) (0.24-0.36) K/mm3 Eos # (Auto) (0.04-0.36) K/mm3 Baso # (Auto) (0.01-0.08) K/mm3 D-Dimer, Quantitative (0.19-0.50) mg/L Sodium (136-145) mEq/L Potassium (3.5-5.1) mEq/L Chloride (98-107) mEq/L Carbon Dioxide (21-32) mEq/L Anion Gap (5-15) BUN (7-18) mg/dL Creatinine (0.55-1.02) mg/dL Est Cr Clr Drug Dosing mL/min Estimated GFR (MDRD) (>60) mL/min BUN/Creatinine Ratio (14-18) Glucose (70-99) mg/dL Hemoglobin A1c 6.5 H ( - 5.6) % Lactic Acid 3.1 H* (0.4-2.0) mmol/L Calcium (8.5-10.1) mg/dL Magnesium (1.8-2.4) mg/dL Total Bilirubin (0.2-1.0) mg/dL AST (15-37) U/L ALT (14-59) U/L Alkaline Phosphatase (46-116) U/L Troponin I (0.00-0.056) ng/mL C-Reactive Protein (<1.0) mg/dL NT-Pro-B Natriuret Pep 34 (0-125) pg/mL Total Protein (6.4-8.2) g/dl Albumin (3.4-5.0) g/dl Globulin gm/dL Albumin/Globulin Ratio (1-2) Vitamin D 25-Hydroxy (30.0-100.0) ng/ml 12/23/20 12/23/20 12/23/20 Range/Units 15:05 15:05 15:05 WBC (3.98-10.04) K/mm3 RBC (3.98-5.22) M/mm3 Hgb (11.2-15.7) gm/dl Hct (34.1-44.9) % MCV (79.4-94.8) fl MCH (25.6-32.2) pg MCHC (32.2-35.5) g/dl RDW Std Deviation (36.4-46.3) fL Plt Count (182-369) K/mm3 MPV (9.4-12.3) fl Neut % (Auto) (34.0-71.1) % Lymph % (Auto) (19.3-51.7) % Elbert % (Auto) (4.7-12.5) % Eos % (Auto) (0.7-5.8) Baso % (Auto) (0.1-1.2) % Neut # (Auto) (1.56-6.13) K/mm3 Lymph # (Auto) (1.18-3.74) K/mm3 Elbert # (Auto) (0.24-0.36) K/mm3 Eos # (Auto) (0.04-0.36) K/mm3 Baso # (Auto) (0.01-0.08) K/mm3 D-Dimer, Quantitative (0.19-0.50) mg/L Sodium (136-145) mEq/L Potassium (3.5-5.1) mEq/L Chloride (98-107) mEq/L Carbon Dioxide (21-32) mEq/L Anion Gap (5-15) BUN (7-18) mg/dL Creatinine (0.55-1.02) mg/dL Est Cr Clr Drug Dosing mL/min Estimated GFR (MDRD) (>60) mL/min BUN/Creatinine Ratio (14-18) Glucose (70-99) mg/dL Hemoglobin A1c ( - 5.6) % Lactic Acid 1.8 (0.4-2.0) mmol/L Calcium (8.5-10.1) mg/dL Magnesium 1.9 (1.8-2.4) mg/dL Total Bilirubin (0.2-1.0) mg/dL AST (15-37) U/L ALT (14-59) U/L Alkaline Phosphatase (46-116) U/L Troponin I (0.00-0.056) ng/mL C-Reactive Protein (<1.0) mg/dL NT-Pro-B Natriuret Pep (0-125) pg/mL Total Protein (6.4-8.2) g/dl Albumin (3.4-5.0) g/dl Globulin gm/dL Albumin/Globulin Ratio (1-2) Vitamin D 25-Hydroxy 29.9 L (30.0-100.0) ng/ml Result Diagrams: 12/23/20 11:40 12/23/20 11:40 Sepsis Event Note - Focused Exam Vital Signs: Vital Signs Temp Temp Pulse Pulse Resp BP BP 12/23/20 15:07 83 132/80 12/23/20 15:03 36.7 C 83 24 H 12/23/20 13:50 12/23/20 13:45 12/23/20 12:15 89 20 115/86 12/23/20 11:35 12/23/20 11:28 36.4 C 90 20 142/82 H Pulse Ox Pulse Ox 12/23/20 15:07 93 L 12/23/20 15:03 93 L 12/23/20 13:50 94 L 12/23/20 13:45 89 L 12/23/20 12:15 92 L 12/23/20 11:35 88 L 12/23/20 11:28 86 L Orders Last 24hrs: Active Orders 24 hr Category Date Time Status Patient Status [ADT] Routine ADT 12/23/20 14:03 Active Blood Glucose Check, Bedside [RC] BID Care 12/23/20 15:15 Active Cardiac Monitoring [RC] . DIRECTED Care 12/23/20 11:36 Active Cardiac Monitoring [RC] CONTINUOUS Care 12/23/20 14:39 Active EKG Documentation Completion [RC] STAT Care 12/23/20 11:34 Active Height and Weight [RC] DAILY Care 12/23/20 14:38 Active Intake and Output [RC] QSHIFT Care 12/23/20 14:38 Active Nurse Communication: Isolation [RC] ASDIRECTED Care 12/23/20 14:41 Active Oxygen Therapy [RC] ASDIRECTED Care 12/23/20 11:35 Active Oxygen Therapy [RC] PRN Care 12/23/20 14:38 Active Peripheral IV Care [RC] . DIRECTED Care 12/23/20 11:34 Active Positioning, Patient [RC] ASDIRECTED Care 12/23/20 14:41 Active Pulse Oximetry [RC] CONTINUOUS Care 12/23/20 14:39 Active RT Incentive Spirometry [RC] ASDIRECTED Care 12/23/20 14:41 Active RT Post Treatment Assessment [RC] Click to Edit Care 12/23/20 15:02 Active RT Pre-Treatment Assessment [RC] Click to Edit Care 12/23/20 15:02 Active Up With Assistance [RC] ASDIRECTED Care 12/23/20 14:38 Active VTE/DVT Education [RC] PER UNIT ROUTINE Care 12/23/20 14:38 Active Vital Signs [RC] Q4H Care 12/23/20 14:38 Active Consult to It Instructor [CONS] Routine Cons 12/23/20 15:13 Active Respiratory Care Assess and Treatment [CONS] Routine Cons 12/23/20 14:38 Active Regular Diet [DIET] Diet 12/23/20 Dinner Active CBC WITH AUTO DIFF [HEME] AM Lab 12/24/20 05:11 Ordered CBC WITH AUTO DIFF [HEME] AM Lab 12/25/20 05:11 Ordered CBC WITH AUTO DIFF [HEME] AM Lab 12/26/20 05:11 Ordered CBC WITH AUTO DIFF [HEME] AM Lab 12/27/20 05:11 Ordered CMP [COMPREHENSIVE METABOLIC PN,CMP] [CHEM] AM Lab 12/24/20 05:11 Ordered CMP [COMPREHENSIVE METABOLIC PN,CMP] [CHEM] AM Lab 12/25/20 05:11 Ordered CMP [COMPREHENSIVE METABOLIC PN,CMP] [CHEM] AM Lab 12/26/20 05:11 Ordered CMP [COMPREHENSIVE METABOLIC PN,CMP] [CHEM] AM Lab 12/27/20 05:11 Ordered CRP [C-REACTIVE PROTEIN] [CHEM] AM Lab 12/24/20 05:11 Ordered CRP [C-REACTIVE PROTEIN] [CHEM] AM Lab 12/25/20 05:11 Ordered CRP [C-REACTIVE PROTEIN] [CHEM] AM Lab 12/26/20 05:11 Ordered CRP [C-REACTIVE PROTEIN] [CHEM] AM Lab 12/27/20 05:11 Ordered DD [D-DIMER QUANTITATIVE] [COAG] Q48H Lab 12/25/20 05:11 Ordered DD [D-DIMER QUANTITATIVE] [COAG] Q48H Lab 12/27/20 05:11 Ordered DD [D-DIMER QUANTITATIVE] [COAG] Q48H Lab 12/29/20 05:11 Ordered MAGNESIUM [CHEM] AM Lab 12/24/20 05:11 Ordered MAGNESIUM [CHEM] AM Lab 12/25/20 05:11 Ordered MAGNESIUM [CHEM] AM Lab 12/26/20 05:11 Ordered MAGNESIUM [CHEM] AM Lab 12/27/20 05:11 Ordered PROCALCITONIN [REF] Stat Lab 12/23/20 15:05 Received Acetaminophen [TylenoL] Med 12/23/20 14:38 Active 650 mg PO Q4H PRN Albuterol [Proventil HFA] Med 12/23/20 15:02 Active See Dose Instructions INH Q2H PRN Amitriptyline [Elavil] Med 12/23/20 21:00 Active 50 mg PO BEDTIME Aspirin Med 12/23/20 15:30 Active 81 mg PO DAILY Azithromycin [Zithromax] 500 mg Med 12/23/20 15:00 Active Sodium Chloride 0.9% [Normal Saline (AdvBag)] 250 ml IV Q24H Benzonatate [Tessalon Perles] Med 12/23/20 15:14 Active 200 mg PO TID PRN Cholecalciferol (Vitamin D3) [Vitamin D3] Med 12/23/20 15:30 Active 5,000 unit PO DAILY Dextromethorphan/guaiFENesin [Robitussin DM] Med 12/23/20 21:00 Active 10 ml PO TID@0700,1400,2100 Docusate Sodium [Colace] Med 12/23/20 14:38 Active 100 mg PO BID PRN Enoxaparin [Lovenox] Med 12/24/20 09:00 Active 40 mg SUBCUT DAILY Famotidine [Pepcid] Med 12/23/20 21:00 Active 20 mg PO BID Magnesium Hydroxide [Milk of Magnesia] Med 12/23/20 14:38 Active 30 ml PO Q12H PRN Metoprolol Tartrate [Lopressor] Med 12/23/20 21:00 Active 50 mg PO BID Ondansetron [Zofran] Med 12/23/20 14:38 Active 4 mg IV Q6H PRN Sodium Chloride 0.9% [Saline Flush] Med 12/23/20 11:33 Active 10 ml FLUSH ASDIRECTED PRN Sodium Chloride 0.9% with KCl [Normal Saline with 40 Med 12/23/20 13:15 Active mEq KCl] 1,000 ml IV ASDIRECTED Venlafaxine [Effexor XR] Med 12/24/20 09:00 Active 37.5 mg PO DAILY Zinc Sulfate [Zincate] Med 12/23/20 15:30 Active 220 mg PO DAILY Zolpidem [Ambien] Med 12/23/20 21:00 Active 10 mg PO BEDTIME dexAMETHasone Med 12/24/20 09:00 Active 6 mg PO DAILY estradioL Med 12/24/20 09:00 Active 1 mg PO DAILY Isolation [COMM] Stat Oth 12/23/20 14:41 Ordered Peripheral IV Insertion Adult [OM.PC] Stat Oth 12/23/20 11:33 Ordered RT Acapella [RESPCARE] Routine Oth 12/23/20 14:41 Active Resuscitation Status Routine Resus Stat 12/23/20 14:38 Ordered Medication Orders Acetaminophen (Acetaminophen 325 Mg Tab) 650 mg PO Q4H PRN PRN Reason: Pain (Mild 1-3)/fever Albuterol (Albuterol 6.7 Gm Inhaler) 0 gm INH Q2H PRN PRN Reason: SOB/Wheezing Amitriptyline HCl (Amitriptyline 25 Mg Tab) 50 mg PO BEDTIME KRISTI Aspirin (Aspirin 81 Mg Tab.Chew) 81 mg PO DAILY KRISTI Last Admin: 12/23/20 16:47 Dose: 81 mg Documented by: BRIEN Benzonatate (Benzonatate 100 Mg Cap) 200 mg PO TID PRN PRN Reason: Cough Last Admin: 12/23/20 16:46 Dose: 200 mg Documented by: BRIEN Cholecalciferol (Cholecalciferol (Vitamin D3) 5,000 Unit Cap) 5,000 unit PO DAILY KRISTI Last Admin: 12/23/20 16:47 Dose: 5,000 unit Documented by: BRIEN Dexamethasone (Dexamethasone 4 Mg Tab) 6 mg PO DAILY KRISTI Stop: 01/01/21 09:01 Docusate Sodium (Docusate Sodium 100 Mg Cap) 100 mg PO BID PRN PRN Reason: Constipation Last Admin: 12/23/20 16:46 Dose: 100 mg Documented by: BRIEN Enoxaparin Sodium (Enoxaparin 40 Mg/0.4 Ml Syringe) 40 mg SUBCUT DAILY [facility] Estradiol (Estradiol 0.5 Mg Tab) 1 mg PO DAILY [facility] Famotidine (Famotidine 20 Mg Tab) 20 mg PO BID [facility] Guaifenesin/Phenylephrine HCl (Guaifenesin/Dextromethorphan 100-10 Mg/5 Ml Soln 5 Ml Cup) 10 ml PO TID@0700,1400,2100 [facility] Potassium Chloride/Sodium Chloride (Normal Saline With 40 Meq Kcl) 1,000 mls @ 100 mls/hr IV ASDIRECTED KRISTI Last Admin: 12/23/20 13:34 Dose: 100 mls/hr Documented by: REA Azithromycin 500 mg/ Sodium (Chloride) 250 mls @ 250 mls/hr IV Q24H [facility] Stop: 12/25/20 15:59 Last Admin: 12/23/20 16:40 Dose: 250 mls/hr Documented by: BRIEN Magnesium Hydroxide (Magnesium Hydroxide 400 Mg/5 Ml Susp 30 Ml Cup) 30 ml PO Q12H PRN PRN Reason: Constipation Metoprolol Tartrate (Metoprolol Tartrate 50 Mg Tab) 50 mg PO BID [facility] Ondansetron HCl (Ondansetron 4 Mg/2 Ml Sdv) 4 mg IV Q6H PRN PRN Reason: Nausea/Vomiting Sodium Chloride (Sodium Chloride 0.9% 10 Ml Syringe) 10 ml FLUSH ASDIRECTED PRN PRN Reason: Keep Vein Open Last Admin: 12/23/20 11:43 Dose: 10 ml Documented by: REA Venlafaxine HCl (Venlafaxine 37.5 Mg Cap.Er) 37.5 mg PO DAILY [facility] Zinc Sulfate (Zinc Sulfate 220 Mg Cap) 220 mg PO DAILY [facility] Last Admin: 12/23/20 16:46 Dose: 220 mg Documented by: BRIEN Zolpidem Tartrate (Zolpidem 10 Mg Tab) 10 mg PO BEDTIME [facility]
[2020-12-23] MEDS ORDERED: Acetaminophen 325 MG Tab PO ONE (13:44)
[2020-12-23] MEDS ORDERED: Magnesium Hydroxide 400 MG/5 ML Susp 30 ML Cup PO PRN (14:38)
[2020-12-23] MEDS ORDERED: Docusate Sodium 100 MG Cap PO PRN (14:38)
[2020-12-23] MEDS ORDERED: Acetaminophen 325 MG Tab PO PRN (14:38)
[2020-12-23] MEDS ORDERED: Ondansetron 4 MG/2 ML SDV IV PRN (14:38)
[2020-12-23] MEDS ORDERED: Sodium Chloride 0.9% 500 ML IV ONE (14:49)
[2020-12-23] MEDS ORDERED: Benzonatate 100 MG Cap PO PRN (15:14)
[2020-12-23 15:36] LABS: HEMOGLOBIN A1C 6.5 %
[2020-12-23] MEDS: Azithromycin 500 MG in Sodium Chloride 0.9% 250 ML IV SCH (16:40)
[2020-12-23] MEDS: Zinc Sulfate 220 MG Cap PO SCH (16:46)
[2020-12-23] MEDS: Aspirin 81 MG Tab.Chew PO SCH (16:47)
[2020-12-23] MEDS: Cholecalciferol (Vitamin D3) 5,000 UNIT Cap PO SCH (16:47)
[2020-12-23] MEDS: guaiFENesin/Dextromethorphan 100-10 MG/5 ML Soln 5 ML Cup PO SCH (20:22)
[2020-12-23] MEDS: Metoprolol Tartrate 50 MG Tab PO SCH (20:23)
[2020-12-23] MEDS: Amitriptyline 25 MG Tab PO SCH (20:24)
[2020-12-23] MEDS: Zolpidem 10 MG Tab PO SCH (20:24)
[2020-12-23] MEDS: Famotidine 20 MG Tab PO SCH (20:24)
[2020-12-23] MEDS: Albuterol 6.7 GM Inhaler INH PRN (20:56)
[2020-12-23] MEDS: Insulin Lispro 100 UNIT/ML 10 ML Vial SUBCUT SCH (21:35)
[2020-12-24] MEDS: Sodium Chloride 0.9% with KCl 1,000 ML IV SCH (02:40)
[2020-12-24] MEDS: guaiFENesin/Dextromethorphan 100-10 MG/5 ML Soln 5 ML Cup PO SCH ×3 (06:06→20:12)
[2020-12-24] MEDS: Insulin Lispro 100 UNIT/ML 10 ML Vial SUBCUT SCH ×5 (06:06→21:00)
--- NOTE | 2020-12-24 07:25 | PCM.PN ---
<Teddy Aguilar - Last Filed: 12/24/20 12:14> - General Info Date of Service: 12/24/20 Admission Dx/Problem (Free Text): Admission Diagnosis/Problem Admission Diagnosis/Problem Hypoxia Functional Status: Reports: Pain Controlled, Tolerating Diet, Ambulating, Urinating, Incentive Spirometry, Other (Acapella ). Denies: New Symptoms - Review of Systems General: Reports: Fatigue, Malaise. Denies: Fever, Weakness, Chills HEENT: Reports: No Symptoms. Denies: Headaches, Sore Throat Pulmonary: Reports: Pleuritic Chest Pain, Cough (improved ). Denies: Shortness of Breath, Sputum, Wheezing Cardiovascular: Reports: Chest Pain (improved - worse with deep inspiration or cough). Denies: Palpitations, Dyspnea on Exertion Gastrointestinal: Reports: No Symptoms. Denies: Abdominal Pain, Constipation, Decreased Appetite, Diarrhea, Nausea, Vomiting Genitourinary: Reports: No Symptoms. Denies: Pain Musculoskeletal: Reports: No Symptoms Skin: Reports: No Symptoms. Denies: Cyanosis Neurological: Reports: No Symptoms. Denies: Confusion, Pre-Existing Deficit, Difficulty Walking, Gait Disturbance Psychiatric: Reports: No Symptoms - Patient Data Vitals - Most Recent: Last Vital Signs Temp 98.1 F 12/24/20 03:44 Pulse 69 12/24/20 03:44 Resp 20 12/24/20 03:44 BP 131/74 12/24/20 03:44 Pulse Ox 91 L 12/24/20 03:44 Weight - Most Recent: 108.409 kg I&O - Last 24 Hours: Intake & Output 12/23/20 12/24/20 12/24/20 22:59 06:59 14:59 Intake Total 400 1475 Output Total 300 Balance 100 1475 Lab Results Last 24 Hours: Laboratory Results - last 24 hr 12/23/20 12/23/20 12/23/20 Range/Units 11:40 11:40 11:40 WBC 5.68 (3.98-10.04) K/mm3 RBC 4.86 (3.98-5.22) M/mm3 Hgb 13.9 (11.2-15.7) gm/dl Hct 40.4 (34.1-44.9) % MCV 83.1 (79.4-94.8) fl MCH 28.6 (25.6-32.2) pg MCHC 34.4 (32.2-35.5) g/dl RDW Std Deviation 38.2 (36.4-46.3) fL Plt Count 274 (182-369) K/mm3 MPV 9.7 (9.4-12.3) fl Neut % (Auto) 67.2 (34.0-71.1) % Lymph % (Auto) 23.8 (19.3-51.7) % [place] % (Auto) 7.7 (4.7-12.5) % Eos % (Auto) 0.4 L (0.7-5.8) Baso % (Auto) 0.5 (0.1-1.2) % Neut # (Auto) 3.82 (1.56-6.13) K/mm3 Lymph # (Auto) 1.35 (1.18-3.74) K/mm3 [place] # (Auto) 0.44 H (0.24-0.36) K/mm3 Eos # (Auto) 0.02 L (0.04-0.36) K/mm3 Baso # (Auto) 0.03 (0.01-0.08) K/mm3 Manual Slide Review D-Dimer, Quantitative 0.48 (0.19-0.50) mg/L Sodium 137 (136-145) mEq/L Potassium 3.2 L (3.5-5.1) mEq/L Chloride 97 L (98-107) mEq/L Carbon Dioxide 26 (21-32) mEq/L Anion Gap 17.2 H (5-15) BUN 12 (7-18) mg/dL Creatinine 0.9 (0.55-1.02) mg/dL Est Cr Clr Drug Dosing 71.11 mL/min Estimated GFR (MDRD) > 60 (>60) mL/min BUN/Creatinine Ratio 13.3 L (14-18) Glucose 160 H (70-99) mg/dL POC Glucose (70-99) mg/dL Hemoglobin A1c ( - 5.6) % Lactic Acid (0.4-2.0) mmol/L Calcium 8.7 (8.5-10.1) mg/dL Magnesium (1.8-2.4) mg/dL Total Bilirubin 0.4 (0.2-1.0) mg/dL AST 43 H (15-37) U/L ALT 29 (14-59) U/L Alkaline Phosphatase 81 (46-116) U/L Troponin I < 0.017 (0.00-0.056) ng/mL C-Reactive Protein 8.8 H* (<1.0) mg/dL NT-Pro-B Natriuret Pep (0-125) pg/mL Total Protein 7.2 (6.4-8.2) g/dl Albumin 2.8 L (3.4-5.0) g/dl Globulin 4.4 gm/dL Albumin/Globulin Ratio 0.6 L (1-2) Vitamin D 25-Hydroxy (30.0-100.0) ng/ml 12/23/20 12/23/20 12/23/20 Range/Units 11:40 11:40 11:40 WBC (3.98-10.04) K/mm3 RBC (3.98-5.22) M/mm3 Hgb (11.2-15.7) gm/dl Hct (34.1-44.9) % MCV (79.4-94.8) fl MCH (25.6-32.2) pg MCHC (32.2-35.5) g/dl RDW Std Deviation (36.4-46.3) fL Plt Count (182-369) K/mm3 MPV (9.4-12.3) fl Neut % (Auto) (34.0-71.1) % Lymph % (Auto) (19.3-51.7) % [place] % (Auto) (4.7-12.5) % Eos % (Auto) (0.7-5.8) Baso % (Auto) (0.1-1.2) % Neut # (Auto) (1.56-6.13) K/mm3 Lymph # (Auto) (1.18-3.74) K/mm3 [place] # (Auto) (0.24-0.36) K/mm3 Eos # (Auto) (0.04-0.36) K/mm3 Baso # (Auto) (0.01-0.08) K/mm3 Manual Slide Review D-Dimer, Quantitative (0.19-0.50) mg/L Sodium (136-145) mEq/L Potassium (3.5-5.1) mEq/L Chloride (98-107) mEq/L Carbon Dioxide (21-32) mEq/L Anion Gap (5-15) BUN (7-18) mg/dL Creatinine (0.55-1.02) mg/dL Est Cr Clr Drug Dosing mL/min Estimated GFR (MDRD) (>60) mL/min BUN/Creatinine Ratio (14-18) Glucose (70-99) mg/dL POC Glucose (70-99) mg/dL Hemoglobin A1c 6.5 H ( - 5.6) % Lactic Acid 3.1 H* (0.4-2.0) mmol/L Calcium (8.5-10.1) mg/dL Magnesium (1.8-2.4) mg/dL Total Bilirubin (0.2-1.0) mg/dL AST (15-37) U/L ALT (14-59) U/L Alkaline Phosphatase (46-116) U/L Troponin I (0.00-0.056) ng/mL C-Reactive Protein (<1.0) mg/dL NT-Pro-B Natriuret Pep 34 (0-125) pg/mL Total Protein (6.4-8.2) g/dl Albumin (3.4-5.0) g/dl Globulin gm/dL Albumin/Globulin Ratio (1-2) Vitamin D 25-Hydroxy (30.0-100.0) ng/ml 12/23/20 12/23/20 12/23/20 Range/Units 15:05 15:05 15:05 WBC (3.98-10.04) K/mm3 RBC (3.98-5.22) M/mm3 Hgb (11.2-15.7) gm/dl Hct (34.1-44.9) % MCV (79.4-94.8) fl MCH (25.6-32.2) pg MCHC (32.2-35.5) g/dl RDW Std Deviation (36.4-46.3) fL Plt Count (182-369) K/mm3 MPV (9.4-12.3) fl Neut % (Auto) (34.0-71.1) % Lymph % (Auto) (19.3-51.7) % [place] % (Auto) (4.7-12.5) % Eos % (Auto) (0.7-5.8) Baso % (Auto) (0.1-1.2) % Neut # (Auto) (1.56-6.13) K/mm3 Lymph # (Auto) (1.18-3.74) K/mm3 [place] # (Auto) (0.24-0.36) K/mm3 Eos # (Auto) (0.04-0.36) K/mm3 Baso # (Auto) (0.01-0.08) K/mm3 Manual Slide Review D-Dimer, Quantitative (0.19-0.50) mg/L Sodium (136-145) mEq/L Potassium (3.5-5.1) mEq/L Chloride (98-107) mEq/L Carbon Dioxide (21-32) mEq/L Anion Gap (5-15) BUN (7-18) mg/dL Creatinine (0.55-1.02) mg/dL Est Cr Clr Drug Dosing mL/min Estimated GFR (MDRD) (>60) mL/min BUN/Creatinine Ratio (14-18) Glucose (70-99) mg/dL POC Glucose (70-99) mg/dL Hemoglobin A1c ( - 5.6) % Lactic Acid 1.8 (0.4-2.0) mmol/L Calcium (8.5-10.1) mg/dL Magnesium 1.9 (1.8-2.4) mg/dL Total Bilirubin (0.2-1.0) mg/dL AST (15-37) U/L ALT (14-59) U/L Alkaline Phosphatase (46-116) U/L Troponin I (0.00-0.056) ng/mL C-Reactive Protein (<1.0) mg/dL NT-Pro-B Natriuret Pep (0-125) pg/mL Total Protein (6.4-8.2) g/dl Albumin (3.4-5.0) g/dl Globulin gm/dL Albumin/Globulin Ratio (1-2) Vitamin D 25-Hydroxy 29.9 L (30.0-100.0) ng/ml 12/23/20 12/24/20 12/24/20 Range/Units 20:57 05:05 05:05 WBC 4.65 (3.98-10.04) K/mm3 RBC 4.47 (3.98-5.22) M/mm3 Hgb 12.7 (11.2-15.7) gm/dl Hct 37.7 (34.1-44.9) % MCV 84.3 (79.4-94.8) fl MCH 28.4 (25.6-32.2) pg MCHC 33.7 (32.2-35.5) g/dl RDW Std Deviation 38.2 (36.4-46.3) fL Plt Count 281 (182-369) K/mm3 MPV 10.0 (9.4-12.3) fl Neut % (Auto) 57.0 (34.0-71.1) % Lymph % (Auto) 29.5 (19.3-51.7) % [place] % (Auto) 12.3 (4.7-12.5) % Eos % (Auto) 0 L (0.7-5.8) Baso % (Auto) 0.6 (0.1-1.2) % Neut # (Auto) 2.65 (1.56-6.13) K/mm3 Lymph # (Auto) 1.37 (1.18-3.74) K/mm3 [place] # (Auto) 0.57 H (0.24-0.36) K/mm3 Eos # (Auto) 0.00 L (0.04-0.36) K/mm3 Baso # (Auto) 0.03 (0.01-0.08) K/mm3 Manual Slide Review Normal smear D-Dimer, Quantitative (0.19-0.50) mg/L Sodium 140 (136-145) mEq/L Potassium 3.7 (3.5-5.1) mEq/L Chloride 105 (98-107) mEq/L Carbon Dioxide 25 (21-32) mEq/L Anion Gap 13.7 (5-15) BUN 10 (7-18) mg/dL Creatinine 0.7 (0.55-1.02) mg/dL Est Cr Clr Drug Dosing 91.42 mL/min Estimated GFR (MDRD) > 60 (>60) mL/min BUN/Creatinine Ratio 14.3 (14-18) Glucose 131 H (70-99) mg/dL POC Glucose 181 H (70-99) mg/dL Hemoglobin A1c ( - 5.6) % Lactic Acid (0.4-2.0) mmol/L Calcium 7.8 L (8.5-10.1) mg/dL Magnesium 1.9 (1.8-2.4) mg/dL Total Bilirubin 0.3 (0.2-1.0) mg/dL AST 42 H (15-37) U/L ALT 33 (14-59) U/L Alkaline Phosphatase 78 (46-116) U/L Troponin I (0.00-0.056) ng/mL C-Reactive Protein 5.3 H* (<1.0) mg/dL NT-Pro-B Natriuret Pep (0-125) pg/mL Total Protein 6.8 (6.4-8.2) g/dl Albumin 2.5 L (3.4-5.0) g/dl Globulin 4.3 gm/dL Albumin/Globulin Ratio 0.6 L (1-2) Vitamin D 25-Hydroxy (30.0-100.0) ng/ml 12/24/20 Range/Units 06:04 WBC (3.98-10.04) K/mm3 RBC (3.98-5.22) M/mm3 Hgb (11.2-15.7) gm/dl Hct (34.1-44.9) % MCV (79.4-94.8) fl MCH (25.6-32.2) pg MCHC (32.2-35.5) g/dl RDW Std Deviation (36.4-46.3) fL Plt Count (182-369) K/mm3 MPV (9.4-12.3) fl Neut % (Auto) (34.0-71.1) % Lymph % (Auto) (19.3-51.7) % [place] % (Auto) (4.7-12.5) % Eos % (Auto) (0.7-5.8) Baso % (Auto) (0.1-1.2) % Neut # (Auto) (1.56-6.13) K/mm3 Lymph # (Auto) (1.18-3.74) K/mm3 [place] # (Auto) (0.24-0.36) K/mm3 Eos # (Auto) (0.04-0.36) K/mm3 Baso # (Auto) (0.01-0.08) K/mm3 Manual Slide Review D-Dimer, Quantitative (0.19-0.50) mg/L Sodium (136-145) mEq/L Potassium (3.5-5.1) mEq/L Chloride (98-107) mEq/L Carbon Dioxide (21-32) mEq/L Anion Gap (5-15) BUN (7-18) mg/dL Creatinine (0.55-1.02) mg/dL Est Cr Clr Drug Dosing mL/min Estimated GFR (MDRD) (>60) mL/min BUN/Creatinine Ratio (14-18) Glucose (70-99) mg/dL POC Glucose 135 H (70-99) mg/dL Hemoglobin A1c ( - 5.6) % Lactic Acid (0.4-2.0) mmol/L Calcium (8.5-10.1) mg/dL Magnesium (1.8-2.4) mg/dL Total Bilirubin (0.2-1.0) mg/dL AST (15-37) U/L ALT (14-59) U/L Alkaline Phosphatase (46-116) U/L Troponin I (0.00-0.056) ng/mL C-Reactive Protein (<1.0) mg/dL NT-Pro-B Natriuret Pep (0-125) pg/mL Total Protein (6.4-8.2) g/dl Albumin (3.4-5.0) g/dl Globulin gm/dL Albumin/Globulin Ratio (1-2) Vitamin D 25-Hydroxy (30.0-100.0) ng/ml Med Orders - Current: Current Medications Acetaminophen (Acetaminophen 325 Mg Tab) 650 mg PO Q4H PRN PRN Reason: Pain (Mild 1-3)/fever Albuterol (Albuterol 6.7 Gm Inhaler) 0 gm INH Q2H PRN PRN Reason: SOB/Wheezing Last Admin: 12/23/20 20:56 Dose: 2 puff Documented by: Amitriptyline HCl (Amitriptyline 25 Mg Tab) 50 mg PO BEDTIME KRISTI Last Admin: 12/23/20 20:24 Dose: 50 mg Documented by: Aspirin (Aspirin 81 Mg Tab.Chew) 81 mg PO DAILY KRISTI Last Admin: 12/23/20 16:47 Dose: 81 mg Documented by: Benzonatate (Benzonatate 100 Mg Cap) 200 mg PO TID PRN PRN Reason: Cough Last Admin: 12/23/20 16:46 Dose: 200 mg Documented by: Cholecalciferol (Cholecalciferol (Vitamin D3) 5,000 Unit Cap) 5,000 unit PO DAILY [facility] Last Admin: 12/23/20 16:47 Dose: 5,000 unit Documented by: Dexamethasone (Dexamethasone 4 Mg Tab) 6 mg PO DAILY [facility] Stop: 01/01/21 09:01 Docusate Sodium (Docusate Sodium 100 Mg Cap) 100 mg PO BID PRN PRN Reason: Constipation Last Admin: 12/23/20 16:46 Dose: 100 mg Documented by: Enoxaparin Sodium (Enoxaparin 40 Mg/0.4 Ml Syringe) 40 mg SUBCUT DAILY [facility] Estradiol (Estradiol 0.5 Mg Tab) 1 mg PO DAILY [facility] Famotidine (Famotidine 20 Mg Tab) 20 mg PO BID [facility] Last Admin: 12/23/20 20:24 Dose: 20 mg Documented by: Guaifenesin/Phenylephrine HCl (Guaifenesin/Dextromethorphan 100-10 Mg/5 Ml Soln 5 Ml Cup) 10 ml PO TID@0700,1400,2100 [facility] Last Admin: 12/24/20 06:06 Dose: 10 ml Documented by: Potassium Chloride/Sodium Chloride (Normal Saline With 40 Meq Kcl) 1,000 mls @ 100 mls/hr IV ASDIRECTED [facility] Last Admin: 12/24/20 02:40 Dose: 100 mls/hr Documented by: Azithromycin 500 mg/ Sodium (Chloride) 250 mls @ 250 mls/hr IV Q24H [facility] Stop: 12/25/20 15:59 Last Admin: 12/23/20 16:40 Dose: 250 mls/hr Documented by: Insulin Human Lispro (Insulin Lispro 100 Unit/Ml 10 Ml Vial) 0 unit SUBCUT QIDACANDBED [facility]; Protocol Last Admin: 12/24/20 06:06 Dose: Not Given Documented by: Magnesium Hydroxide (Magnesium Hydroxide 400 Mg/5 Ml Susp 30 Ml Cup) 30 ml PO Q12H PRN PRN Reason: Constipation Metoprolol Tartrate (Metoprolol Tartrate 50 Mg Tab) 50 mg PO BID [facility] Last Admin: 12/23/20 20:23 Dose: 50 mg Documented by: Ondansetron HCl (Ondansetron 4 Mg/2 Ml Sdv) 4 mg IV Q6H PRN PRN Reason: Nausea/Vomiting Sodium Chloride (Sodium Chloride 0.9% 10 Ml Syringe) 10 ml FLUSH ASDIRECTED PRN PRN Reason: Keep Vein Open Last Admin: 12/23/20 11:43 Dose: 10 ml Documented by: Venlafaxine HCl (Venlafaxine 37.5 Mg Cap.Er) 37.5 mg PO DAILY [facility] Zinc Sulfate (Zinc Sulfate 220 Mg Cap) 220 mg PO DAILY [facility] Last Admin: 12/23/20 16:46 Dose: 220 mg Documented by: Zolpidem Tartrate (Zolpidem 10 Mg Tab) 10 mg PO BEDTIME [facility] Last Admin: 12/23/20 20:24 Dose: 10 mg Documented by: Discontinued Medications Acetaminophen (Acetaminophen 325 Mg Tab) 975 mg PO NOW ONE Stop: 12/23/20 13:45 Last Admin: 12/23/20 14:17 Dose: 975 mg Documented by: Dexamethasone (Dexamethasone 4 Mg Tab) 4 mg PO ONETIME ONE Stop: 12/23/20 11:54 Last Admin: 12/23/20 12:42 Dose: 4 mg Documented by: Sodium Chloride (Normal Saline) 500 mls @ 999 mls/hr IV .BOLUS ONE Stop: 12/23/20 15:19 Last Admin: 12/23/20 16:35 Dose: 999 mls/hr Documented by: - Exam Quality Assessment: Supplemental Oxygen (3L ), DVT Prophylaxis. No: Urine Catheter General: Alert, Oriented, Cooperative, No Acute Distress HEENT: Pupils Equal, Pupils Reactive, Mucous Membr. Moist/[place] Neck: Supple, Trachea Midline Lungs: Clear to Auscultation, Normal Respiratory Effort, Decreased Breath Sounds Cardiovascular: Regular Rate, Regular Rhythm GI/Abdominal Exam: Normal Bowel Sounds, Soft, Non-Tender, No Distention (Female) Exam: Deferred Back Exam: Normal Inspection, Full Range of Motion Extremities: Normal Inspection, Normal Range of Motion, Non-Tender, No Pedal Edema, Normal Capillary Refill Peripheral Pulses: 2+: Radial (L), Radial (R), Dorsalis Pedis (L), Dorsalis Pedis (R) Skin: Warm, Dry, Intact Neurological: No New Focal Deficit Psy/Mental Status: Alert, Anxious - Patient Data Lab Results Last 24 hrs: Laboratory Results - last 24 hr 12/23/20 12/23/20 12/23/20 Range/Units 11:40 11:40 11:40 WBC 5.68 (3.98-10.04) K/mm3 RBC 4.86 (3.98-5.22) M/mm3 Hgb 13.9 (11.2-15.7) gm/dl Hct 40.4 (34.1-44.9) % MCV 83.1 (79.4-94.8) fl MCH 28.6 (25.6-32.2) pg MCHC 34.4 (32.2-35.5) g/dl RDW Std Deviation 38.2 (36.4-46.3) fL Plt Count 274 (182-369) K/mm3 MPV 9.7 (9.4-12.3) fl Neut % (Auto) 67.2 (34.0-71.1) % Lymph % (Auto) 23.8 (19.3-51.7) % [place] % (Auto) 7.7 (4.7-12.5) % Eos % (Auto) 0.4 L (0.7-5.8) Baso % (Auto) 0.5 (0.1-1.2) % Neut # (Auto) 3.82 (1.56-6.13) K/mm3 Lymph # (Auto) 1.35 (1.18-3.74) K/mm3 [place] # (Auto) 0.44 H (0.24-0.36) K/mm3 Eos # (Auto) 0.02 L (0.04-0.36) K/mm3 Baso # (Auto) 0.03 (0.01-0.08) K/mm3 Manual Slide Review D-Dimer, Quantitative 0.48 (0.19-0.50) mg/L Sodium 137 (136-145) mEq/L Potassium 3.2 L (3.5-5.1) mEq/L Chloride 97 L (98-107) mEq/L Carbon Dioxide 26 (21-32) mEq/L Anion Gap 17.2 H (5-15) BUN 12 (7-18) mg/dL Creatinine 0.9 (0.55-1.02) mg/dL Est Cr Clr Drug Dosing 71.11 mL/min Estimated GFR (MDRD) > 60 (>60) mL/min BUN/Creatinine Ratio 13.3 L (14-18) Glucose 160 H (70-99) mg/dL POC Glucose (70-99) mg/dL Hemoglobin A1c ( - 5.6) % Lactic Acid (0.4-2.0) mmol/L Calcium 8.7 (8.5-10.1) mg/dL Magnesium (1.8-2.4) mg/dL Total Bilirubin 0.4 (0.2-1.0) mg/dL AST 43 H (15-37) U/L ALT 29 (14-59) U/L Alkaline Phosphatase 81 (46-116) U/L Troponin I < 0.017 (0.00-0.056) ng/mL C-Reactive Protein 8.8 H* (<1.0) mg/dL NT-Pro-B Natriuret Pep (0-125) pg/mL Total Protein 7.2 (6.4-8.2) g/dl Albumin 2.8 L (3.4-5.0) g/dl Globulin 4.4 gm/dL Albumin/Globulin Ratio 0.6 L (1-2) Vitamin D 25-Hydroxy (30.0-100.0) ng/ml 12/23/20 12/23/20 12/23/20 Range/Units 11:40 11:40 11:40 WBC (3.98-10.04) K/mm3 RBC (3.98-5.22) M/mm3 Hgb (11.2-15.7) gm/dl Hct (34.1-44.9) % MCV (79.4-94.8) fl MCH (25.6-32.2) pg MCHC (32.2-35.5) g/dl RDW Std Deviation (36.4-46.3) fL Plt Count (182-369) K/mm3 MPV (9.4-12.3) fl Neut % (Auto) (34.0-71.1) % Lymph % (Auto) (19.3-51.7) % [place] % (Auto) (4.7-12.5) % Eos % (Auto) (0.7-5.8) Baso % (Auto) (0.1-1.2) % Neut # (Auto) (1.56-6.13) K/mm3 Lymph # (Auto) (1.18-3.74) K/mm3 [place] # (Auto) (0.24-0.36) K/mm3 Eos # (Auto) (0.04-0.36) K/mm3 Baso # (Auto) (0.01-0.08) K/mm3 Manual Slide Review D-Dimer, Quantitative (0.19-0.50) mg/L Sodium (136-145) mEq/L Potassium (3.5-5.1) mEq/L Chloride (98-107) mEq/L Carbon Dioxide (21-32) mEq/L Anion Gap (5-15) BUN (7-18) mg/dL Creatinine (0.55-1.02) mg/dL Est Cr Clr Drug Dosing mL/min Estimated GFR (MDRD) (>60) mL/min BUN/Creatinine Ratio (14-18) Glucose (70-99) mg/dL POC Glucose (70-99) mg/dL Hemoglobin A1c 6.5 H ( - 5.6) % Lactic Acid 3.1 H* (0.4-2.0) mmol/L Calcium (8.5-10.1) mg/dL Magnesium (1.8-2.4) mg/dL Total Bilirubin (0.2-1.0) mg/dL AST (15-37) U/L ALT (14-59) U/L Alkaline Phosphatase (46-116) U/L Troponin I (0.00-0.056) ng/mL C-Reactive Protein (<1.0) mg/dL NT-Pro-B Natriuret Pep 34 (0-125) pg/mL Total Protein (6.4-8.2) g/dl Albumin (3.4-5.0) g/dl Globulin gm/dL Albumin/Globulin Ratio (1-2) Vitamin D 25-Hydroxy (30.0-100.0) ng/ml 12/23/20 12/23/20 12/23/20 Range/Units 15:05 15:05 15:05 WBC (3.98-10.04) K/mm3 RBC (3.98-5.22) M/mm3 Hgb (11.2-15.7) gm/dl Hct (34.1-44.9) % MCV (79.4-94.8) fl MCH (25.6-32.2) pg MCHC (32.2-35.5) g/dl RDW Std Deviation (36.4-46.3) fL Plt Count (182-369) K/mm3 MPV (9.4-12.3) fl Neut % (Auto) (34.0-71.1) % Lymph % (Auto) (19.3-51.7) % [place] % (Auto) (4.7-12.5) % Eos % (Auto) (0.7-5.8) Baso % (Auto) (0.1-1.2) % Neut # (Auto) (1.56-6.13) K/mm3 Lymph # (Auto) (1.18-3.74) K/mm3 [place] # (Auto) (0.24-0.36) K/mm3 Eos # (Auto) (0.04-0.36) K/mm3 Baso # (Auto) (0.01-0.08) K/mm3 Manual Slide Review D-Dimer, Quantitative (0.19-0.50) mg/L Sodium (136-145) mEq/L Potassium (3.5-5.1) mEq/L Chloride (98-107) mEq/L Carbon Dioxide (21-32) mEq/L Anion Gap (5-15) BUN (7-18) mg/dL Creatinine (0.55-1.02) mg/dL Est Cr Clr Drug Dosing mL/min Estimated GFR (MDRD) (>60) mL/min BUN/Creatinine Ratio (14-18) Glucose (70-99) mg/dL POC Glucose (70-99) mg/dL Hemoglobin A1c ( - 5.6) % Lactic Acid 1.8 (0.4-2.0) mmol/L Calcium (8.5-10.1) mg/dL Magnesium 1.9 (1.8-2.4) mg/dL Total Bilirubin (0.2-1.0) mg/dL AST (15-37) U/L ALT (14-59) U/L Alkaline Phosphatase (46-116) U/L Troponin I (0.00-0.056) ng/mL C-Reactive Protein (<1.0) mg/dL NT-Pro-B Natriuret Pep (0-125) pg/mL Total Protein (6.4-8.2) g/dl Albumin (3.4-5.0) g/dl Globulin gm/dL Albumin/Globulin Ratio (1-2) Vitamin D 25-Hydroxy 29.9 L (30.0-100.0) ng/ml 12/23/20 12/24/20 12/24/20 Range/Units 20:57 05:05 05:05 WBC 4.65 (3.98-10.04) K/mm3 RBC 4.47 (3.98-5.22) M/mm3 Hgb 12.7 (11.2-15.7) gm/dl Hct 37.7 (34.1-44.9) % MCV 84.3 (79.4-94.8) fl MCH 28.4 (25.6-32.2) pg MCHC 33.7 (32.2-35.5) g/dl RDW Std Deviation 38.2 (36.4-46.3) fL Plt Count 281 (182-369) K/mm3 MPV 10.0 (9.4-12.3) fl Neut % (Auto) 57.0 (34.0-71.1) % Lymph % (Auto) 29.5 (19.3-51.7) % [place] % (Auto) 12.3 (4.7-12.5) % Eos % (Auto) 0 L (0.7-5.8) Baso % (Auto) 0.6 (0.1-1.2) % Neut # (Auto) 2.65 (1.56-6.13) K/mm3 Lymph # (Auto) 1.37 (1.18-3.74) K/mm3 [place] # (Auto) 0.57 H (0.24-0.36) K/mm3 Eos # (Auto) 0.00 L (0.04-0.36) K/mm3 Baso # (Auto) 0.03 (0.01-0.08) K/mm3 Manual Slide Review Normal smear D-Dimer, Quantitative (0.19-0.50) mg/L Sodium 140 (136-145) mEq/L Potassium 3.7 (3.5-5.1) mEq/L Chloride 105 (98-107) mEq/L Carbon Dioxide 25 (21-32) mEq/L Anion Gap 13.7 (5-15) BUN 10 (7-18) mg/dL Creatinine 0.7 (0.55-1.02) mg/dL Est Cr Clr Drug Dosing 91.42 mL/min Estimated GFR (MDRD) > 60 (>60) mL/min BUN/Creatinine Ratio 14.3 (14-18) Glucose 131 H (70-99) mg/dL POC Glucose 181 H (70-99) mg/dL Hemoglobin A1c ( - 5.6) % Lactic Acid (0.4-2.0) mmol/L Calcium 7.8 L (8.5-10.1) mg/dL Magnesium 1.9 (1.8-2.4) mg/dL Total Bilirubin 0.3 (0.2-1.0) mg/dL AST 42 H (15-37) U/L ALT 33 (14-59) U/L Alkaline Phosphatase 78 (46-116) U/L Troponin I (0.00-0.056) ng/mL C-Reactive Protein 5.3 H* (<1.0) mg/dL NT-Pro-B Natriuret Pep (0-125) pg/mL Total Protein 6.8 (6.4-8.2) g/dl Albumin 2.5 L (3.4-5.0) g/dl Globulin 4.3 gm/dL Albumin/Globulin Ratio 0.6 L (1-2) Vitamin D 25-Hydroxy (30.0-100.0) ng/ml 12/24/20 Range/Units 06:04 WBC (3.98-10.04) K/mm3 RBC (3.98-5.22) M/mm3 Hgb (11.2-15.7) gm/dl Hct (34.1-44.9) % MCV (79.4-94.8) fl MCH (25.6-32.2) pg MCHC (32.2-35.5) g/dl RDW Std Deviation (36.4-46.3) fL Plt Count (182-369) K/mm3 MPV (9.4-12.3) fl Neut % (Auto) (34.0-71.1) % Lymph % (Auto) (19.3-51.7) % [place] % (Auto) (4.7-12.5) % Eos % (Auto) (0.7-5.8) Baso % (Auto) (0.1-1.2) % Neut # (Auto) (1.56-6.13) K/mm3 Lymph # (Auto) (1.18-3.74) K/mm3 [place] # (Auto) (0.24-0.36) K/mm3 Eos # (Auto) (0.04-0.36) K/mm3 Baso # (Auto) (0.01-0.08) K/mm3 Manual Slide Review D-Dimer, Quantitative (0.19-0.50) mg/L Sodium (136-145) mEq/L Potassium (3.5-5.1) mEq/L Chloride (98-107) mEq/L Carbon Dioxide (21-32) mEq/L Anion Gap (5-15) BUN (7-18) mg/dL Creatinine (0.55-1.02) mg/dL Est Cr Clr Drug Dosing mL/min Estimated GFR (MDRD) (>60) mL/min BUN/Creatinine Ratio (14-18) Glucose (70-99) mg/dL POC Glucose 135 H (70-99) mg/dL Hemoglobin A1c ( - 5.6) % Lactic Acid (0.4-2.0) mmol/L Calcium (8.5-10.1) mg/dL Magnesium (1.8-2.4) mg/dL Total Bilirubin (0.2-1.0) mg/dL AST (15-37) U/L ALT (14-59) U/L Alkaline Phosphatase (46-116) U/L Troponin I (0.00-0.056) ng/mL C-Reactive Protein (<1.0) mg/dL NT-Pro-B Natriuret Pep (0-125) pg/mL Total Protein (6.4-8.2) g/dl Albumin (3.4-5.0) g/dl Globulin gm/dL Albumin/Globulin Ratio (1-2) Vitamin D 25-Hydroxy (30.0-100.0) ng/ml Result Diagrams: 12/24/20 05:05 12/24/20 05:05 Sepsis Event Note - Evaluation Sepsis Screening Result: No Definite Risk - Focused Exam Vital Signs: Vital Signs Temp Pulse Resp BP Pulse Ox Pulse Ox 12/24/20 03:44 98.1 F 69 20 131/74 91 L 12/24/20 00:28 98.1 F 90 20 138/75 93 L 12/23/20 20:57 92 L 12/23/20 20:23 88 139/72 12/23/20 20:07 98.1 F 88 20 139/72 92 L - Problem List & Annotations (1) Pneumonia due to COVID-19 virus SNOMED Code(s): 445646204786511486 Code(s): U07.1 - COVID-19; J12.82 - PNEUMONIA DUE TO CORONAVIRUS DISEASE 2019 Status: Acute Current Visit: Yes (2) Lactic acidosis SNOMED Code(s): 35939253 Code(s): E87.2 - ACIDOSIS Status: Resolved Current Visit: Yes (3) Hypoxia SNOMED Code(s): 626526705 Code(s): R09.02 - HYPOXEMIA Status: Acute Current Visit: Yes (4) Acute respiratory distress SNOMED Code(s): 671525813 Code(s): R06.03 - ACUTE RESPIRATORY DISTRESS Status: Acute Current Visit: Yes (5) Hypoalbuminemia SNOMED Code(s): 744558982 Code(s): E88.09 - OTH DISORDERS OF PLASMA-PROTEIN METABOLISM, NEC Status: Acute Current Visit: Yes (6) High anion gap metabolic acidosis SNOMED Code(s): 27156330 Code(s): E87.2 - ACIDOSIS Status: Resolved Current Visit: Yes (7) Hypokalemia SNOMED Code(s): 40813172 Code(s): E87.6 - HYPOKALEMIA Status: Resolved Current Visit: Yes (8) Hyperglycemia SNOMED Code(s): 09746867 Code(s): R73.9 - HYPERGLYCEMIA, UNSPECIFIED Status: Acute Current Visit: Yes (9) Elevated C-reactive protein (CRP) SNOMED Code(s): 326517766837144 Code(s): R79.82 - ELEVATED C-REACTIVE PROTEIN (CRP) Status: Acute Current Visit: Yes (10) Atypical chest pain SNOMED Code(s): 685648891 Code(s): R07.89 - OTHER CHEST PAIN Status: Acute Current Visit: No (11) HTN (hypertension) SNOMED Code(s): 37137272 Code(s): I10 - ESSENTIAL (PRIMARY) HYPERTENSION Status: Chronic Priority: Medium Current Visit: No Qualifiers: Hypertension type: unspecified Qualified Code(s): I10 - Essential (primary) hypertension (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) SNOMED Code(s): 58576466 Code(s): I45.6 - PRE-EXCITATION SYNDROME Status: Chronic Priority: Medium Current Visit: No (13) Asthma SNOMED Code(s): 258935383 Code(s): J45.909 - UNSPECIFIED ASTHMA, UNCOMPLICATED Status: Chronic Priority: Medium Current Visit: No Qualifiers: Asthma severity: unspecified severity Asthma persistence: unspecified Asthma complication type: unspecified Qualified Code(s): J45.909 - Unspecified asthma, uncomplicated (14) GERD (gastroesophageal reflux disease) SNOMED Code(s): 690243195 Code(s): K21.9 - GASTRO-ESOPHAGEAL REFLUX DISEASE WITHOUT ESOPHAGITIS Status: Chronic Priority: Low Current Visit: No Qualifiers: Esophagitis presence: esophagitis presence not specified Qualified Code(s): K21.9 - Gastro-esophageal reflux disease without esophagitis (15) Anxiety SNOMED Code(s): 16752715 Code(s): F41.9 - ANXIETY DISORDER, UNSPECIFIED Status: Chronic Priority: Medium Current Visit: Yes (16) Depression SNOMED Code(s): 54018058 Code(s): F32.9 - MAJOR DEPRESSIVE DISORDER, SINGLE EPISODE, UNSPECIFIED Status: Chronic Priority: Low Current Visit: No Qualifiers: Depression Type: other depression Qualified Code(s): F32.89 - Other specified depressive episodes (17) Sleep disorder SNOMED Code(s): 85937218 Code(s): G47.9 - SLEEP DISORDER, UNSPECIFIED Status: Chronic Priority: Low Current Visit: No (18) Obesity (BMI 30-39.9) SNOMED Code(s): 923838894, 162004424 Code(s): E66.9 - OBESITY, UNSPECIFIED Status: Chronic Priority: Low Current Visit: No (19) Vitamin D deficiency SNOMED Code(s): 36616710 Code(s): E55.9 - VITAMIN D DEFICIENCY, UNSPECIFIED Status: Acute Priority: Medium Current Visit: Yes (20) New onset type 2 diabetes mellitus SNOMED Code(s): 28101724 Code(s): E11.9 - TYPE 2 DIABETES MELLITUS WITHOUT COMPLICATIONS Status: Acute Priority: High Current Visit: Yes - Problem List Review Problem List Initiated/Reviewed/Updated: Yes - My Orders Last 24 Hours: My Active Orders 12/23/20 14:38 Height and Weight [RC] DAILY Intake and Output [RC] 04,16 Oxygen Therapy [RC] PRN Up With Assistance [RC] ASDIRECTED VTE/DVT Education [RC] PER UNIT ROUTINE Vital Signs [RC] Q4H Respiratory Care Assess and Treatment [CONS] Routine Acetaminophen [TylenoL] 650 mg PO Q4H PRN Docusate Sodium [Colace] 100 mg PO BID PRN Magnesium Hydroxide [Milk of Magnesia] 30 ml PO Q12H PRN Ondansetron [Zofran] 4 mg IV Q6H PRN Resuscitation Status Routine 12/23/20 14:39 Cardiac Monitoring [RC] CONTINUOUS Pulse Oximetry [RC] CONTINUOUS 12/23/20 14:41 Positioning, Patient [RC] BID RT Incentive Spirometry [RC] ASDIRECTED Isolation [COMM] Stat RT Acapella [RESPCARE] Routine 12/23/20 15:00 Azithromycin [Zithromax] 500 mg Sodium Chloride 0.9% [Normal Saline (AdvBag)] 250 ml IV Q24H 12/23/20 15:02 Albuterol [Proventil HFA] See Dose Instructions INH Q2H PRN 12/23/20 15:05 PROCALCITONIN [REF] Stat 12/23/20 15:13 Consult to Surveillance Dual Rate Officer [CONS] Routine 12/23/20 15:14 Benzonatate [Tessalon Perles] 200 mg PO TID PRN 12/23/20 15:15 Blood Glucose Check, Bedside [RC] QIDACANDBED 12/23/20 15:30 Aspirin 81 mg PO DAILY Cholecalciferol (Vitamin D3) [Vitamin D3] 5,000 unit PO DAILY Zinc Sulfate [Zincate] 220 mg PO DAILY 12/23/20 Dinner Regular Diet [DIET] 12/23/20 21:00 Amitriptyline [Elavil] 50 mg PO BEDTIME Dextromethorphan/guaiFENesin [Robitussin DM] 10 ml PO TID@0700,1400,2100 Famotidine [Pepcid] 20 mg PO BID Metoprolol Tartrate [Lopressor] 50 mg PO BID Zolpidem [Ambien] 10 mg PO BEDTIME 12/23/20 22:00 Insulin Lispro [HumaLOG] See Protocol SUBCUT QIDACANDBED 12/24/20 09:00 Enoxaparin [Lovenox] 40 mg SUBCUT DAILY Venlafaxine [Effexor XR] 37.5 mg PO DAILY dexAMETHasone 6 mg PO DAILY estradioL 1 mg PO DAILY 12/25/20 05:11 CBC WITH AUTO DIFF [HEME] AM CMP [COMPREHENSIVE METABOLIC PN,CMP] [CHEM] AM CRP [C-REACTIVE PROTEIN] [CHEM] AM DD [D-DIMER QUANTITATIVE] [COAG] Q48H MAGNESIUM [CHEM] AM 12/26/20 05:11 CBC WITH AUTO DIFF [HEME] AM CMP [COMPREHENSIVE METABOLIC PN,CMP] [CHEM] AM CRP [C-REACTIVE PROTEIN] [CHEM] AM MAGNESIUM [CHEM] AM 12/27/20 05:11 CBC WITH AUTO DIFF [HEME] AM CMP [COMPREHENSIVE METABOLIC PN,CMP] [CHEM] AM CRP [C-REACTIVE PROTEIN] [CHEM] AM DD [D-DIMER QUANTITATIVE] [COAG] Q48H MAGNESIUM [CHEM] AM 12/29/20 05:11 DD [D-DIMER QUANTITATIVE] [COAG] Q48H - Assessment Assessment:: Assessment: Day of admission - 12/23/2020 * 50-year-old female presents to ED with SOP, body aches, fever, cough, h eadache, weakness * Reports symptoms began on December 10 and she was diagnosed with Covid on December 11. * Reports baseline oxygen saturations of 81-86 at home on room air * Saturations noted to be 86 on room air in the ED. Was placed on 2 L with saturations in the low 90s. * History of hypertension, Briyc-Gsgkmbxzu-Edxmi syndrome, asthma, GERD, anxiety, depression, sleep disorder, obesity * Twelve-lead EKG shows sinus rhythm at 91 bpm * Chest x-ray shows bilateral infiltrates consistent with COVID pneumonia * Labs in ED: * WBC 5.68 * hemoglobin 13.9 * Platelet 274,000 * Neutrophils 67.2% * D-dimer 0.48 * Sodium 137 * Potassium 3.2 * Chloride 97 * Carbon dioxide 26 * Anion gap 17.2 * BUN 12, creatinine 0.9, GFR greater than 60 * Glucose 160 * Total bilirubin 0.4 * AST 43, ALT 29, alkaline phosphatase 81 * Troponin less than 0.017 * CRP 8.8 * Albumin 2.8 * Lactic acid 3.1 * proBNP 34 * She is given Tylenol for headache and 4 mg dexamethasone. She is also started on 100 mils an hour of sodium chloride with 40 mill equivalents KCl. * Subsequently admitted to the medical floor for management of COVID-19 pneumonia symptoms. 12/24/2020 * Patient reports her symptoms have been improving. She has been ambulating around the room and has been in the shower. * Requiring 3 L of oxygen currently. * States her cough has improved. * A1c was 6.5 which is just barely in the diabetic range. Low-dose sliding scale insulin and 4 times daily before meals and bedtime glucose checks added. Will start consistent carbohydrate diet. * Dietitian and asthma educator ordered. * Patient was initially reluctant to start insulin while here. We discussed improved results with better glucose control. Consider Metformin on discharge. * Patient has been utilizing her incentive spirometer and Acapella. She reports due to back pain she is unable to prone for more than a couple minutes. * No concerns on telemetry. * Labs today: * WBC 4.65. Hemoglobin 12.7. Neutrophils 57.0. Sodium 140. Potassium 3.7. Chloride 105. Carbon dioxide 25. Anion gap 13.5. BUN 10, creatinine 0.7, GFR greater than 60. Glucose 1 31-1 81. Magnesium 1.9. CRP 5.3. Albumin 2.5. Vitamin D yesterday was low at 29.9. Repeat lactic acid yesterday was 1.8 * Continue current treatment plan. Likely discharge in 1-3 days pending continued improvement. - Plan Plan:: Pneumonia due to COVID-19 virus Hypoxia Acute respiratory distress Elevated C-reactive protein (CRP) Atypical chest pain Asthma * Airborne/Contact precautions * Unfortunately is outside window for remdesivir so will hold off for now * Azithromycin - day 2/3 * Dexamethasone - day 09/11 * IS/Acapella * Prone whenever able * Telemetry * Continuous pulse oximeter * RT consultation * PRN albuterol MDI * ASA 81 mg daily * Vitamin D 5000 units daily * Zinc supplementation * Pepcid 20mg BID * O2 as needed with goal saturations of 88-95% * Monitor daily labs * D-Dimer Q48hr * Ambulate around room * Will hold off PT/OT for now * Pain medications as needed * Cough suppressants as ordered * Check procalcitonin - pending Hypoalbuminemia Obesity (BMI 30-39.9) * Surveillance Dual Rate Officer consultation Hyperglycemia New onset type II DM - A1C 6.5% * Anticipate rise in blood glucose readings due to steroid * Check blood glucose readings QID AC and Bedtime * Surveillance Dual Rate Officer consult * ict educator consult * SS low dose insulin * Consider metformin at discharge * Consistent carbohydrate diet HTN (hypertension) WPW (Akvuj-Rnspmxkrr-Gqsmt syndrome) * No acute concerns * Telemetry * Monitor vital signs GERD (gastroesophageal reflux disease) * Pepcid BID Vitamin D deficiency * Hold home dose vitamin D * Increase to 5000 units daily Anxiety Depression Sleep disorder * Continue home Effexor, Ambien, Elavil Resolved: High anion gap metabolic acidosis, Resolved Hypokalemia, Resolved Lactic acidosis, Resolved Code status: Full code PCP: Melina Raman NP DVT prophylaxis: Lovenox Disposition: Admit to medical floor on telemetry for management of COVID-19 pneumonia symptoms. Anticipated length of stay 3 to 4 days total. <Yeison Crowe M - Last Filed: 12/24/20 12:30> - Patient Data Vitals - Most Recent: Last Vital Signs Temp 36.8 C 12/24/20 07:54 Pulse 80 12/24/20 09:46 Resp 20 12/24/20 07:54 BP 137/76 12/24/20 09:46 Pulse Ox 94 L 12/24/20 08:47 I&O - Last 24 Hours: Intake & Output 12/23/20 12/24/20 12/24/20 22:59 06:59 14:59 Intake Total 400 1775 180 Output Total 300 1200 Balance 100 575 180 Lab Results Last 24 Hours: Laboratory Results - last 24 hr 12/23/20 12/23/20 12/23/20 Range/Units 11:40 11:40 11:40 WBC (3.98-10.04) K/mm3 RBC (3.98-5.22) M/mm3 Hgb (11.2-15.7) gm/dl Hct (34.1-44.9) % MCV (79.4-94.8) fl MCH (25.6-32.2) pg MCHC (32.2-35.5) g/dl RDW Std Deviation (36.4-46.3) fL Plt Count (182-369) K/mm3 MPV (9.4-12.3) fl Neut % (Auto) (34.0-71.1) % Lymph % (Auto) (19.3-51.7) % [place] % (Auto) (4.7-12.5) % Eos % (Auto) (0.7-5.8) Baso % (Auto) (0.1-1.2) % Neut # (Auto) (1.56-6.13) K/mm3 Lymph # (Auto) (1.18-3.74) K/mm3 [place] # (Auto) (0.24-0.36) K/mm3 Eos # (Auto) (0.04-0.36) K/mm3 Baso # (Auto) (0.01-0.08) K/mm3 Manual Slide Review Sodium 137 (136-145) mEq/L Potassium 3.2 L (3.5-5.1) mEq/L Chloride 97 L (98-107) mEq/L Carbon Dioxide 26 (21-32) mEq/L Anion Gap 17.2 H (5-15) BUN 12 (7-18) mg/dL Creatinine 0.9 (0.55-1.02) mg/dL Est Cr Clr Drug Dosing 71.11 mL/min Estimated GFR (MDRD) > 60 (>60) mL/min BUN/Creatinine Ratio 13.3 L (14-18) Glucose 160 H (70-99) mg/dL POC Glucose (70-99) mg/dL Hemoglobin A1c ( - 5.6) % Lactic Acid 3.1 H* (0.4-2.0) mmol/L Calcium 8.7 (8.5-10.1) mg/dL Magnesium (1.8-2.4) mg/dL Total Bilirubin 0.4 (0.2-1.0) mg/dL AST 43 H (15-37) U/L ALT 29 (14-59) U/L Alkaline Phosphatase 81 (46-116) U/L Troponin I < 0.017 (0.00-0.056) ng/mL C-Reactive Protein 8.8 H* (<1.0) mg/dL NT-Pro-B Natriuret Pep 34 (0-125) pg/mL Total Protein 7.2 (6.4-8.2) g/dl Albumin 2.8 L (3.4-5.0) g/dl Globulin 4.4 gm/dL Albumin/Globulin Ratio 0.6 L (1-2) Vitamin D 25-Hydroxy (30.0-100.0) ng/ml 12/23/20 12/23/20 12/23/20 Range/Units 11:40 15:05 15:05 WBC (3.98-10.04) K/mm3 RBC (3.98-5.22) M/mm3 Hgb (11.2-15.7) gm/dl Hct (34.1-44.9) % MCV (79.4-94.8) fl MCH (25.6-32.2) pg MCHC (32.2-35.5) g/dl RDW Std Deviation (36.4-46.3) fL Plt Count (182-369) K/mm3 MPV (9.4-12.3) fl Neut % (Auto) (34.0-71.1) % Lymph % (Auto) (19.3-51.7) % [place] % (Auto) (4.7-12.5) % Eos % (Auto) (0.7-5.8) Baso % (Auto) (0.1-1.2) % Neut # (Auto) (1.56-6.13) K/mm3 Lymph # (Auto) (1.18-3.74) K/mm3 [place] # (Auto) (0.24-0.36) K/mm3 Eos # (Auto) (0.04-0.36) K/mm3 Baso # (Auto) (0.01-0.08) K/mm3 Manual Slide Review Sodium (136-145) mEq/L Potassium (3.5-5.1) mEq/L Chloride (98-107) mEq/L Carbon Dioxide (21-32) mEq/L Anion Gap (5-15) BUN (7-18) mg/dL Creatinine (0.55-1.02) mg/dL Est Cr Clr Drug Dosing mL/min Estimated GFR (MDRD) (>60) mL/min BUN/Creatinine Ratio (14-18) Glucose (70-99) mg/dL POC Glucose (70-99) mg/dL Hemoglobin A1c 6.5 H ( - 5.6) % Lactic Acid 1.8 (0.4-2.0) mmol/L Calcium (8.5-10.1) mg/dL Magnesium (1.8-2.4) mg/dL Total Bilirubin (0.2-1.0) mg/dL AST (15-37) U/L ALT (14-59) U/L Alkaline Phosphatase (46-116) U/L Troponin I (0.00-0.056) ng/mL C-Reactive Protein (<1.0) mg/dL NT-Pro-B Natriuret Pep (0-125) pg/mL Total Protein (6.4-8.2) g/dl Albumin (3.4-5.0) g/dl Globulin gm/dL Albumin/Globulin Ratio (1-2) Vitamin D 25-Hydroxy 29.9 L (30.0-100.0) ng/ml 12/23/20 12/23/20 12/24/20 Range/Units 15:05 20:57 05:05 WBC 4.65 (3.98-10.04) K/mm3 RBC 4.47 (3.98-5.22) M/mm3 Hgb 12.7 (11.2-15.7) gm/dl Hct 37.7 (34.1-44.9) % MCV 84.3 (79.4-94.8) fl MCH 28.4 (25.6-32.2) pg MCHC 33.7 (32.2-35.5) g/dl RDW Std Deviation 38.2 (36.4-46.3) fL Plt Count 281 (182-369) K/mm3 MPV 10.0 (9.4-12.3) fl Neut % (Auto) 57.0 (34.0-71.1) % Lymph % (Auto) 29.5 (19.3-51.7) % [place] % (Auto) 12.3 (4.7-12.5) % Eos % (Auto) 0 L (0.7-5.8) Baso % (Auto) 0.6 (0.1-1.2) % Neut # (Auto) 2.65 (1.56-6.13) K/mm3 Lymph # (Auto) 1.37 (1.18-3.74) K/mm3 [place] # (Auto) 0.57 H (0.24-0.36) K/mm3 Eos # (Auto) 0.00 L (0.04-0.36) K/mm3 Baso # (Auto) 0.03 (0.01-0.08) K/mm3 Manual Slide Review Normal smear Sodium (136-145) mEq/L Potassium (3.5-5.1) mEq/L Chloride (98-107) mEq/L Carbon Dioxide (21-32) mEq/L Anion Gap (5-15) BUN (7-18) mg/dL Creatinine (0.55-1.02) mg/dL Est Cr Clr Drug Dosing mL/min Estimated GFR (MDRD) (>60) mL/min BUN/Creatinine Ratio (14-18) Glucose (70-99) mg/dL POC Glucose 181 H (70-99) mg/dL Hemoglobin A1c ( - 5.6) % Lactic Acid (0.4-2.0) mmol/L Calcium (8.5-10.1) mg/dL Magnesium 1.9 (1.8-2.4) mg/dL Total Bilirubin (0.2-1.0) mg/dL AST (15-37) U/L ALT (14-59) U/L Alkaline Phosphatase (46-116) U/L Troponin I (0.00-0.056) ng/mL C-Reactive Protein (<1.0) mg/dL NT-Pro-B Natriuret Pep (0-125) pg/mL Total Protein (6.4-8.2) g/dl Albumin (3.4-5.0) g/dl Globulin gm/dL Albumin/Globulin Ratio (1-2) Vitamin D 25-Hydroxy (30.0-100.0) ng/ml 12/24/20 12/24/20 12/24/20 Range/Units 05:05 06:04 11:41 WBC (3.98-10.04) K/mm3 RBC (3.98-5.22) M/mm3 Hgb (11.2-15.7) gm/dl Hct (34.1-44.9) % MCV (79.4-94.8) fl MCH (25.6-32.2) pg MCHC (32.2-35.5) g/dl RDW Std Deviation (36.4-46.3) fL Plt Count (182-369) K/mm3 MPV (9.4-12.3) fl Neut % (Auto) (34.0-71.1) % Lymph % (Auto) (19.3-51.7) % [place] % (Auto) (4.7-12.5) % Eos % (Auto) (0.7-5.8) Baso % (Auto) (0.1-1.2) % Neut # (Auto) (1.56-6.13) K/mm3 Lymph # (Auto) (1.18-3.74) K/mm3 [place] # (Auto) (0.24-0.36) K/mm3 Eos # (Auto) (0.04-0.36) K/mm3 Baso # (Auto) (0.01-0.08) K/mm3 Manual Slide Review Sodium 140 (136-145) mEq/L Potassium 3.7 (3.5-5.1) mEq/L Chloride 105 (98-107) mEq/L Carbon Dioxide 25 (21-32) mEq/L Anion Gap 13.7 (5-15) BUN 10 (7-18) mg/dL Creatinine 0.7 (0.55-1.02) mg/dL Est Cr Clr Drug Dosing 91.42 mL/min Estimated GFR (MDRD) > 60 (>60) mL/min BUN/Creatinine Ratio 14.3 (14-18) Glucose 131 H (70-99) mg/dL POC Glucose 135 H 156 H (70-99) mg/dL Hemoglobin A1c ( - 5.6) % Lactic Acid (0.4-2.0) mmol/L Calcium 7.8 L (8.5-10.1) mg/dL Magnesium 1.9 (1.8-2.4) mg/dL Total Bilirubin 0.3 (0.2-1.0) mg/dL AST 42 H (15-37) U/L ALT 33 (14-59) U/L Alkaline Phosphatase 78 (46-116) U/L Troponin I (0.00-0.056) ng/mL C-Reactive Protein 5.3 H* (<1.0) mg/dL NT-Pro-B Natriuret Pep (0-125) pg/mL Total Protein 6.8 (6.4-8.2) g/dl Albumin 2.5 L (3.4-5.0) g/dl Globulin 4.3 gm/dL Albumin/Globulin Ratio 0.6 L (1-2) Vitamin D 25-Hydroxy (30.0-100.0) ng/ml Med Orders - Current: Current Medications Acetaminophen (Acetaminophen 325 Mg Tab) 650 mg PO Q4H PRN PRN Reason: Pain (Mild 1-3)/fever Albuterol (Albuterol 6.7 Gm Inhaler) 0 gm INH Q2H PRN PRN Reason: SOB/Wheezing Last Admin: 12/24/20 08:46 Dose: 2 puff Documented by: Amitriptyline HCl (Amitriptyline 25 Mg Tab) 50 mg PO BEDTIME [facility] Last Admin: 12/23/20 20:24 Dose: 50 mg Documented by: Aspirin (Aspirin 81 Mg Tab.Chew) 81 mg PO DAILY [facility] Last Admin: 12/24/20 09:44 Dose: 81 mg Documented by: Benzonatate (Benzonatate 100 Mg Cap) 200 mg PO TID PRN PRN Reason: Cough Last Admin: 12/23/20 16:46 Dose: 200 mg Documented by: Cholecalciferol (Cholecalciferol (Vitamin D3) 5,000 Unit Cap) 5,000 unit PO DAILY [facility] Last Admin: 12/24/20 09:45 Dose: 5,000 unit Documented by: Dexamethasone (Dexamethasone 4 Mg Tab) 6 mg PO DAILY [facility] Stop: 01/01/21 09:01 Last Admin: 12/24/20 09:48 Dose: 6 mg Documented by: Docusate Sodium (Docusate Sodium 100 Mg Cap) 100 mg PO BID PRN PRN Reason: Constipation Last Admin: 12/23/20 16:46 Dose: 100 mg Documented by: Enoxaparin Sodium (Enoxaparin 40 Mg/0.4 Ml Syringe) 40 mg SUBCUT DAILY [facility] Last Admin: 12/24/20 09:49 Dose: 40 mg Documented by: Estradiol (Estradiol 0.5 Mg Tab) 1 mg PO DAILY [facility] Last Admin: 12/24/20 09:45 Dose: 1 mg Documented by: Famotidine (Famotidine 20 Mg Tab) 20 mg PO BID [facility] Last Admin: 12/24/20 09:47 Dose: 20 mg Documented by: Guaifenesin/Phenylephrine HCl (Guaifenesin/Dextromethorphan 100-10 Mg/5 Ml Soln 5 Ml Cup) 10 ml PO TID@0700,1400,2100 [facility] Last Admin: 12/24/20 06:06 Dose: 10 ml Documented by: Azithromycin 500 mg/ Sodium (Chloride) 250 mls @ 250 mls/hr IV Q24H [facility] Stop: 12/25/20 15:59 Last Admin: 12/23/20 16:40 Dose: 250 mls/hr Documented by: Insulin Human Lispro (Insulin Lispro 100 Unit/Ml 10 Ml Vial) 0 unit SUBCUT QIDACANDBED [facility]; Protocol Last Admin: 12/24/20 06:06 Dose: Not Given Documented by: Magnesium Hydroxide (Magnesium Hydroxide 400 Mg/5 Ml Susp 30 Ml Cup) 30 ml PO Q12H PRN PRN Reason: Constipation Metoprolol Tartrate (Metoprolol Tartrate 50 Mg Tab) 50 mg PO BID [facility] Last Admin: 12/24/20 09:46 Dose: 50 mg Documented by: Ondansetron HCl (Ondansetron 4 Mg/2 Ml Sdv) 4 mg IV Q6H PRN PRN Reason: Nausea/Vomiting Sodium Chloride (Sodium Chloride 0.9% 10 Ml Syringe) 10 ml FLUSH ASDIRECTED PRN PRN Reason: Keep Vein Open Last Admin: 12/23/20 11:43 Dose: 10 ml Documented by: Venlafaxine HCl (Venlafaxine 37.5 Mg Cap.Er) 37.5 mg PO DAILY [facility] Last Admin: 12/24/20 09:44 Dose: 37.5 mg Documented by: Zinc Sulfate (Zinc Sulfate 220 Mg Cap) 220 mg PO DAILY [facility] Last Admin: 12/24/20 09:46 Dose: 220 mg Documented by: Zolpidem Tartrate (Zolpidem 10 Mg Tab) 10 mg PO BEDTIME [facility] Last Admin: 12/23/20 20:24 Dose: 10 mg Documented by: Discontinued Medications Acetaminophen (Acetaminophen 325 Mg Tab) 975 mg PO NOW ONE Stop: 12/23/20 13:45 Last Admin: 12/23/20 14:17 Dose: 975 mg Documented by: Dexamethasone (Dexamethasone 4 Mg Tab) 4 mg PO ONETIME ONE Stop: 12/23/20 11:54 Last Admin: 12/23/20 12:42 Dose: 4 mg Documented by: Potassium Chloride/Sodium Chloride (Normal Saline With 40 Meq Kcl) 1,000 mls @ 100 mls/hr IV ASDIRECTED KRISTI Last Admin: 12/24/20 02:40 Dose: 100 mls/hr Documented by: Sodium Chloride (Normal Saline) 500 mls @ 999 mls/hr IV .BOLUS ONE Stop: 12/23/20 15:19 Last Admin: 12/23/20 16:35 Dose: 999 mls/hr Documented by: - Patient Data Lab Results Last 24 hrs: Laboratory Results - last 24 hr 12/23/20 12/23/20 12/23/20 Range/Units 11:40 11:40 11:40 WBC (3.98-10.04) K/mm3 RBC (3.98-5.22) M/mm3 Hgb (11.2-15.7) gm/dl Hct (34.1-44.9) % MCV (79.4-94.8) fl MCH (25.6-32.2) pg MCHC (32.2-35.5) g/dl RDW Std Deviation (36.4-46.3) fL Plt Count (182-369) K/mm3 MPV (9.4-12.3) fl Neut % (Auto) (34.0-71.1) % Lymph % (Auto) (19.3-51.7) % [place] % (Auto) (4.7-12.5) % Eos % (Auto) (0.7-5.8) Baso % (Auto) (0.1-1.2) % Neut # (Auto) (1.56-6.13) K/mm3 Lymph # (Auto) (1.18-3.74) K/mm3 [place] # (Auto) (0.24-0.36) K/mm3 Eos # (Auto) (0.04-0.36) K/mm3 Baso # (Auto) (0.01-0.08) K/mm3 Manual Slide Review Sodium 137 (136-145) mEq/L Potassium 3.2 L (3.5-5.1) mEq/L Chloride 97 L (98-107) mEq/L Carbon Dioxide 26 (21-32) mEq/L Anion Gap 17.2 H (5-15) BUN 12 (7-18) mg/dL Creatinine 0.9 (0.55-1.02) mg/dL Est Cr Clr Drug Dosing 71.11 mL/min Estimated GFR (MDRD) > 60 (>60) mL/min BUN/Creatinine Ratio 13.3 L (14-18) Glucose 160 H (70-99) mg/dL POC Glucose (70-99) mg/dL Hemoglobin A1c ( - 5.6) % Lactic Acid 3.1 H* (0.4-2.0) mmol/L Calcium 8.7 (8.5-10.1) mg/dL Magnesium (1.8-2.4) mg/dL Total Bilirubin 0.4 (0.2-1.0) mg/dL AST 43 H (15-37) U/L ALT 29 (14-59) U/L Alkaline Phosphatase 81 (46-116) U/L Troponin I < 0.017 (0.00-0.056) ng/mL C-Reactive Protein 8.8 H* (<1.0) mg/dL NT-Pro-B Natriuret Pep 34 (0-125) pg/mL Total Protein 7.2 (6.4-8.2) g/dl Albumin 2.8 L (3.4-5.0) g/dl Globulin 4.4 gm/dL Albumin/Globulin Ratio 0.6 L (1-2) Vitamin D 25-Hydroxy (30.0-100.0) ng/ml 12/23/20 12/23/20 12/23/20 Range/Units 11:40 15:05 15:05 WBC (3.98-10.04) K/mm3 RBC (3.98-5.22) M/mm3 Hgb (11.2-15.7) gm/dl Hct (34.1-44.9) % MCV (79.4-94.8) fl MCH (25.6-32.2) pg MCHC (32.2-35.5) g/dl RDW Std Deviation (36.4-46.3) fL Plt Count (182-369) K/mm3 MPV (9.4-12.3) fl Neut % (Auto) (34.0-71.1) % Lymph % (Auto) (19.3-51.7) % [place] % (Auto) (4.7-12.5) % Eos % (Auto) (0.7-5.8) Baso % (Auto) (0.1-1.2) % Neut # (Auto) (1.56-6.13) K/mm3 Lymph # (Auto) (1.18-3.74) K/mm3 [place] # (Auto) (0.24-0.36) K/mm3 Eos # (Auto) (0.04-0.36) K/mm3 Baso # (Auto) (0.01-0.08) K/mm3 Manual Slide Review Sodium (136-145) mEq/L Potassium (3.5-5.1) mEq/L Chloride (98-107) mEq/L Carbon Dioxide (21-32) mEq/L Anion Gap (5-15) BUN (7-18) mg/dL Creatinine (0.55-1.02) mg/dL Est Cr Clr Drug Dosing mL/min Estimated GFR (MDRD) (>60) mL/min BUN/Creatinine Ratio (14-18) Glucose (70-99) mg/dL POC Glucose (70-99) mg/dL Hemoglobin A1c 6.5 H ( - 5.6) % Lactic Acid 1.8 (0.4-2.0) mmol/L Calcium (8.5-10.1) mg/dL Magnesium (1.8-2.4) mg/dL Total Bilirubin (0.2-1.0) mg/dL AST (15-37) U/L ALT (14-59) U/L Alkaline Phosphatase (46-116) U/L Troponin I (0.00-0.056) ng/mL C-Reactive Protein (<1.0) mg/dL NT-Pro-B Natriuret Pep (0-125) pg/mL Total Protein (6.4-8.2) g/dl Albumin (3.4-5.0) g/dl Globulin gm/dL Albumin/Globulin Ratio (1-2) Vitamin D 25-Hydroxy 29.9 L (30.0-100.0) ng/ml 12/23/20 12/23/20 12/24/20 Range/Units 15:05 20:57 05:05 WBC 4.65 (3.98-10.04) K/mm3 RBC 4.47 (3.98-5.22) M/mm3 Hgb 12.7 (11.2-15.7) gm/dl Hct 37.7 (34.1-44.9) % MCV 84.3 (79.4-94.8) fl MCH 28.4 (25.6-32.2) pg MCHC 33.7 (32.2-35.5) g/dl RDW Std Deviation 38.2 (36.4-46.3) fL Plt Count 281 (182-369) K/mm3 MPV 10.0 (9.4-12.3) fl Neut % (Auto) 57.0 (34.0-71.1) % Lymph % (Auto) 29.5 (19.3-51.7) % [place] % (Auto) 12.3 (4.7-12.5) % Eos % (Auto) 0 L (0.7-5.8) Baso % (Auto) 0.6 (0.1-1.2) % Neut # (Auto) 2.65 (1.56-6.13) K/mm3 Lymph # (Auto) 1.37 (1.18-3.74) K/mm3 [place] # (Auto) 0.57 H (0.24-0.36) K/mm3 Eos # (Auto) 0.00 L (0.04-0.36) K/mm3 Baso # (Auto) 0.03 (0.01-0.08) K/mm3 Manual Slide Review Normal smear Sodium (136-145) mEq/L Potassium (3.5-5.1) mEq/L Chloride (98-107) mEq/L Carbon Dioxide (21-32) mEq/L Anion Gap (5-15) BUN (7-18) mg/dL Creatinine (0.55-1.02) mg/dL Est Cr Clr Drug Dosing mL/min Estimated GFR (MDRD) (>60) mL/min BUN/Creatinine Ratio (14-18) Glucose (70-99) mg/dL POC Glucose 181 H (70-99) mg/dL Hemoglobin A1c ( - 5.6) % Lactic Acid (0.4-2.0) mmol/L Calcium (8.5-10.1) mg/dL Magnesium 1.9 (1.8-2.4) mg/dL Total Bilirubin (0.2-1.0) mg/dL AST (15-37) U/L ALT (14-59) U/L Alkaline Phosphatase (46-116) U/L Troponin I (0.00-0.056) ng/mL C-Reactive Protein (<1.0) mg/dL NT-Pro-B Natriuret Pep (0-125) pg/mL Total Protein (6.4-8.2) g/dl Albumin (3.4-5.0) g/dl Globulin gm/dL Albumin/Globulin Ratio (1-2) Vitamin D 25-Hydroxy (30.0-100.0) ng/ml 12/24/20 12/24/20 12/24/20 Range/Units 05:05 06:04 11:41 WBC (3.98-10.04) K/mm3 RBC (3.98-5.22) M/mm3 Hgb (11.2-15.7) gm/dl Hct (34.1-44.9) % MCV (79.4-94.8) fl MCH (25.6-32.2) pg MCHC (32.2-35.5) g/dl RDW Std Deviation (36.4-46.3) fL Plt Count (182-369) K/mm3 MPV (9.4-12.3) fl Neut % (Auto) (34.0-71.1) % Lymph % (Auto) (19.3-51.7) % [place] % (Auto) (4.7-12.5) % Eos % (Auto) (0.7-5.8) Baso % (Auto) (0.1-1.2) % Neut # (Auto) (1.56-6.13) K/mm3 Lymph # (Auto) (1.18-3.74) K/mm3 [place] # (Auto) (0.24-0.36) K/mm3 Eos # (Auto) (0.04-0.36) K/mm3 Baso # (Auto) (0.01-0.08) K/mm3 Manual Slide Review Sodium 140 (136-145) mEq/L Potassium 3.7 (3.5-5.1) mEq/L Chloride 105 (98-107) mEq/L Carbon Dioxide 25 (21-32) mEq/L Anion Gap 13.7 (5-15) BUN 10 (7-18) mg/dL Creatinine 0.7 (0.55-1.02) mg/dL Est Cr Clr Drug Dosing 91.42 mL/min Estimated GFR (MDRD) > 60 (>60) mL/min BUN/Creatinine Ratio 14.3 (14-18) Glucose 131 H (70-99) mg/dL POC Glucose 135 H 156 H (70-99) mg/dL Hemoglobin A1c ( - 5.6) % Lactic Acid (0.4-2.0) mmol/L Calcium 7.8 L (8.5-10.1) mg/dL Magnesium 1.9 (1.8-2.4) mg/dL Total Bilirubin 0.3 (0.2-1.0) mg/dL AST 42 H (15-37) U/L ALT 33 (14-59) U/L Alkaline Phosphatase 78 (46-116) U/L Troponin I (0.00-0.056) ng/mL C-Reactive Protein 5.3 H* (<1.0) mg/dL NT-Pro-B Natriuret Pep (0-125) pg/mL Total Protein 6.8 (6.4-8.2) g/dl Albumin 2.5 L (3.4-5.0) g/dl Globulin 4.3 gm/dL Albumin/Globulin Ratio 0.6 L (1-2) Vitamin D 25-Hydroxy (30.0-100.0) ng/ml Result Diagrams: 12/24/20 05:05 12/24/20 05:05 Sepsis Event Note - Focused Exam Vital Signs: Vital Signs Temp Pulse Resp BP Pulse Ox Pulse Ox 12/24/20 09:46 80 137/76 12/24/20 08:47 94 L 12/24/20 07:54 36.8 C 80 20 137/76 92 L 12/24/20 03:44 36.7 C 69 20 131/74 91 L - Plan Plan:: I have seen and examined the patient independently of Teddy Aguilar PA-C, and have discussed the case with him. I have reviewed plan as outlined by him. I agree with the orders as outlined by him. Please see orders.
[2020-12-24] MEDS: Albuterol 6.7 GM Inhaler INH PRN ×2 (08:46→14:59)
[2020-12-24] MEDS: Aspirin 81 MG Tab.Chew PO SCH (09:44)
[2020-12-24] MEDS: Venlafaxine 37.5 MG Cap.ER PO SCH (09:44)
[2020-12-24] MEDS: Cholecalciferol (Vitamin D3) 5,000 UNIT Cap PO SCH (09:45)
[2020-12-24] MEDS: Estradiol 0.5 MG Tab PO SCH (09:45)
[2020-12-24] MEDS: Zinc Sulfate 220 MG Cap PO SCH (09:46)
[2020-12-24] MEDS: Metoprolol Tartrate 50 MG Tab PO SCH ×2 (09:46→20:07)
[2020-12-24] MEDS: Famotidine 20 MG Tab PO SCH ×2 (09:47→20:07)
[2020-12-24] MEDS: Dexamethasone 4 MG Tab PO SCH (09:48)
[2020-12-24] MEDS: Enoxaparin 40 MG/0.4 ML Syringe SUBCUT SCH (09:49)
[2020-12-24] MEDS: Azithromycin 500 MG in Sodium Chloride 0.9% 250 ML IV SCH (14:52)
[2020-12-24] MEDS: Zolpidem 10 MG Tab PO SCH (20:07)
[2020-12-24] MEDS: Amitriptyline 25 MG Tab PO SCH (20:10)
[2020-12-25] MEDS: guaiFENesin/Dextromethorphan 100-10 MG/5 ML Soln 5 ML Cup PO SCH ×2 (05:58→08:13)
[2020-12-25] MEDS: Albuterol 6.7 GM Inhaler INH PRN (07:44)
[2020-12-25] MEDS: Insulin Lispro 100 UNIT/ML 10 ML Vial SUBCUT SCH ×2 (07:50→11:17)
[2020-12-25] MEDS: Enoxaparin 40 MG/0.4 ML Syringe SUBCUT SCH (08:44)
[2020-12-25] MEDS: Aspirin 81 MG Tab.Chew PO SCH (08:45)
[2020-12-25] MEDS: Zinc Sulfate 220 MG Cap PO SCH (08:45)
[2020-12-25] MEDS: Cholecalciferol (Vitamin D3) 5,000 UNIT Cap PO SCH (08:46)
[2020-12-25] MEDS: Dexamethasone 4 MG Tab PO SCH (08:46)
[2020-12-25] MEDS: Famotidine 20 MG Tab PO SCH (08:46)
[2020-12-25] MEDS: Estradiol 0.5 MG Tab PO SCH (08:46)
[2020-12-25] MEDS: Venlafaxine 37.5 MG Cap.ER PO SCH (08:46)
[2020-12-25] MEDS: Metoprolol Tartrate 50 MG Tab PO SCH (08:46)
[2020-12-25 08:50] VITALS: BP 139/70; PULSE 87
--- NOTE | 2020-12-25 10:32 | PCM.DCSUM1 ---
<Teddy Aguilar - Last Filed: 12/25/20 10:36> Discharge Summary - Hospital Course HPI Initial Comments: This is a 50-year-old female presents to ED on 12/23/2020 with shortness of breath, body aches, fever, cough, headache, and weakness. She reports symptoms began on December 10 and she was subsequently tested and positive for Covid pneumonia on December 11. She states symptoms have been constant since then and getting worse. She reports pain with deep inspiration and a productive cough. She reports saturations at home of been between 81-86 percent on room air. In the ED she was noted to have saturations of 86% on room air was placed on 2 L of oxygen which improved her saturations to the low 90s. She reports she was having nausea and diarrhea but this has resolved. Denies any chronic respiratory conditions. In the ED twelve-lead EKG is obtained showing a sinus rhythm at 91 bpm. Temp is 97.6 Fahrenheit. Pulse 89. Respirations 20. Blood pressure 115/86. Labs were obtained showing a WBC of 5.68. Hemoglobin 13.9. Platelet 274,000. Neutrophils are within normal limits at 67.2. D-dimer is 0.48. Sodium is 137. Potassium 3.2. Chloride 97. Carbon dioxide 26. Anion gap is 17.2. BUN is 12. Creatinine 0.9. GFR is greater than 60. Glucose is 160. Calcium 8.7. Bilirubin 0.4. AST is 43, ALT 29, alkaline phosphatase 81. Troponin is less than 0.017. CRP is 8.8. Albumin is low at 2.8. Lactic acid is high at 3.1. proBNP is 34. Chest x-ray is obtained showing patchy areas of increased density within the chest compatible with Covid pneumonia. She is given Tylenol for headache as well as 4 mg p.o. dexamethasone. She will started on NS plus K at 100 mils an hour. She carries a history of hypertension, Argueta Parkinson's white, asthma, GERD, anxiety, depression, sleep disorder, obesity. She was never a smoker. She is a full code. She is subsequently admitted to the medical floor on telemetry for management of her COVID-19 pneumonia and symptoms. Her PCP is Melina Raman NP. Diagnosis: Stroke: No - Discharge Data Discharge Date: 12/25/20 (Admit date: 12/22/2020) Discharge Disposition: Home, Self-Care 01 Condition: Good - Referral to Home Health Primary Care Physician: Melina Raman NP - Discharge Diagnosis/Problem(s) (1) Pneumonia due to COVID-19 virus SNOMED Code(s): 516793679192239082 ICD Code: U07.1 - COVID-19; J12.82 - PNEUMONIA DUE TO CORONAVIRUS DISEASE 2019 Status: Acute (2) Lactic acidosis SNOMED Code(s): 36585435 ICD Code: E87.2 - ACIDOSIS Status: Resolved (3) Hypoxia SNOMED Code(s): 221375656 ICD Code: R09.02 - HYPOXEMIA Status: Acute (4) Acute respiratory distress SNOMED Code(s): 110932024 ICD Code: R06.03 - ACUTE RESPIRATORY DISTRESS Status: Acute (5) Hypoalbuminemia SNOMED Code(s): 094485389 ICD Code: E88.09 - OTH DISORDERS OF PLASMA-PROTEIN METABOLISM, NEC Status: Acute (6) High anion gap metabolic acidosis SNOMED Code(s): 00131688 ICD Code: E87.2 - ACIDOSIS Status: Resolved (7) Hypokalemia SNOMED Code(s): 28704872 ICD Code: E87.6 - HYPOKALEMIA Status: Resolved (8) Hyperglycemia SNOMED Code(s): 42266234 ICD Code: R73.9 - HYPERGLYCEMIA, UNSPECIFIED Status: Acute (9) Elevated C-reactive protein (CRP) SNOMED Code(s): 486303226530196 ICD Code: R79.82 - ELEVATED C-REACTIVE PROTEIN (CRP) Status: Acute (10) Atypical chest pain SNOMED Code(s): 977575465 ICD Code: R07.89 - OTHER CHEST PAIN Status: Acute (11) HTN (hypertension) SNOMED Code(s): 69234902 ICD Code: I10 - ESSENTIAL (PRIMARY) HYPERTENSION Status: Chronic Priority: Medium Qualifiers: Hypertension type: unspecified Qualified Code(s): I10 - Essential (primary) hypertension (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 Code(s): 47681729 ICD Code: I45.6 - PRE-EXCITATION SYNDROME Status: Chronic Priority: Medium (13) Asthma SNOMED Code(s): 799689067 ICD Code: J45.909 - UNSPECIFIED ASTHMA, UNCOMPLICATED Status: Chronic Priority: Medium Qualifiers: Asthma severity: unspecified severity Asthma persistence: unspecified Asthma complication type: unspecified Qualified Code(s): J45.909 - Unspecified asthma, uncomplicated (14) GERD (gastroesophageal reflux disease) SNOMED Code(s): 605846751 ICD Code: K21.9 - GASTRO-ESOPHAGEAL REFLUX DISEASE WITHOUT ESOPHAGITIS Status: Chronic Priority: Low Qualifiers: Esophagitis presence: esophagitis presence not specified Qualified Code(s): K21.9 - Gastro-esophageal reflux disease without esophagitis (15) Anxiety SNOMED Code(s): 80418454 ICD Code: F41.9 - ANXIETY DISORDER, UNSPECIFIED Status: Chronic Priority: Medium (16) Depression SNOMED Code(s): 18856008 ICD Code: F32.9 - MAJOR DEPRESSIVE DISORDER, SINGLE EPISODE, UNSPECIFIED Status: Chronic Priority: Low Qualifiers: Depression Type: other depression Qualified Code(s): F32.89 - Other specifi ed depressive episodes (17) Sleep disorder SNOMED Code(s): 94993862 ICD Code: G47.9 - SLEEP DISORDER, UNSPECIFIED Status: Chronic Priority: Low (18) Obesity (BMI 30-39.9) SNOMED Code(s): 762592947, 235503870 ICD Code: E66.9 - OBESITY, UNSPECIFIED Status: Chronic Priority: Low (19) Vitamin D deficiency SNOMED Code(s): 25805558 ICD Code: E55.9 - VITAMIN D DEFICIENCY, UNSPECIFIED Status: Acute Priority: Medium (20) New onset type 2 diabetes mellitus SNOMED Code(s): 54297194 ICD Code: E11.9 - TYPE 2 DIABETES MELLITUS WITHOUT COMPLICATIONS Status: Acute Priority: High - Patient Summary/Data Consults: Consultations 12/23/20 14:38 Respiratory Care Assess and Treatment [CONS] Routine 12/23/20 15:13 Consult to Pe Electrical Engineer [CONS] Routine 12/24/20 10:59 Consult to Diabetic Nurse Specialist [CONS] Routine Labs Pending at D/C: None Recommended Follow-up Testing/Procedures: Follow-up with primary care provider within 7 to 10 days of discharge -Recommend repeat CBC, CMP, and magnesium at that visit. Consider repeat CXR. -Patient was discharged on 1 L continuous oxygen. -Patient was told to check her oxygen saturations twice daily and as needed. She was instructed to write these down. Review this journal. -During visit patient had A1c of 6.5. She started on 500 mg ER Metformin with supper. Monitor need for increase in dosing. Hospital Course: This is a 50-year-old female who presented to our ED on 12/23/2020 with shortness of breath, body aches, fever, cough, headache, and weakness. She reports symptoms began on December 10 and she was diagnosed with COVID-19 on December 11. She had been monitoring her saturations at home and they were found to be 81 to 86%. She was hypoxic in the ED was placed on 2 L which improved her saturations at 90%. She carries a history of hypertension, Hejgl-Vpbhwwauf-Iuvdp syndrome, asthma, GERD, anxiety, depression, sleep disorder, and obesity. Chest x-ray showed bilateral infiltrates consistent with Covid pneumonia. There has been no leukocytosis. She was reporting poor oral intake and did appear somewhat dry on admission. Her lactic acid was noted to be 3.1 and is felt this was more likely due to her fluid state and not a septic event. She is given a 500 mL fluid bolus which did improve her lactic acid to 1.8. Procalcitonin was obtained on admission and was less than 0.05. She was started on scheduled Robitussin-DM and as needed Tessalon Perles for her cough. She does reporting chest pain worse with deep inspiration and coughing and this did improve. A1c was obtained after continued elevated blood glucose readings and was found to be 6.5%. She was on 6 mg dexamethasone and there is concern that her blood sugars will continue to increase. She was placed on sliding scale insulin while here. She will be discharged on 500 mg extended release Metformin at suppertime. Her primary care provider can monitor this and adjust accordingly. At her worst she was requiring 3 L of oxygen and she was able to be weaned down to 1 L of oxygen continuous at discharge. She was qualified for this by respiratory therapy. Per the patient she has been feeling much better. She was on a constant carbohydrate diet and did see our dietitian. We discussed lifestyle changes due to her elevated A1c. She was utilizing her incentive spirometer and Acapella regularly. She was only able to prone for brief periods due to chronic back pain. She completed 2 days worth of 500 mg azithromycin and she will be sent 1 more p.o. dose to take this afternoon. She completed 3 days of dexamethasone and will be sent a prescription for 7 more days of 6 mg p.o. dexamethasone. Vitamin D was obtained and was low at 29.9. She is already on 1000 units of p.o. vitamin D and this will be increased to 5000 units of p.o. vitamin D. Her primary care provider should follow-up with this in the future. She was started on zinc supplementation. She is already on a daily 81 mg aspirin and this was continued. She had been up ambulating around the room without difficulty and did take a shower. She states she feels good today and feels like she is ready to go home. We will discharge her home today. Home medications were continued with the exception of her prior vitamin D as mentioned prior. She will be discharged on 2 puffs every 2 hour as needed albuterol inhaler, 1 dose of 500 mg azithromycin p.o. this afternoon, as needed 100 mg 3 times daily Tessalon Perles for cough, 7 more days of 6 mg dexamethasone as described prior, 500 mg daily extended release Metformin with supper, 5000 unit daily vitamin D supplementation and zinc supplementation. She does have a pulse oximeter at home and she was instructed to take her pulse oximetry reading twice daily and if she feels short of breath. She was instructed to record these readings in a journal and bring this with to medical appointments to assist in determining when she can wean off of oxygen. Recommend primary care provider monitor patient for need to increase Metformin dosing. Recommend patient follow-up with primary care provider within 7 to 10 days of discharge, sooner if needed. Recommend repeat CBC, CMP, and magnesium at that time. Consider repeat chest x-ray at that time. Recommend patient follow-up with peer educator outpatient if needed. Patient discharged home today. Patient advised to follow-up with primary care provider or return the emergency room should symptoms return or worsen. Patient encouraged to continue utilizing incentive spirometry for 1-2 more weeks or until symptoms develop. Patient was warned to continue isolation/quarantine for a total of 20 days from symptom onset. - Patient Instructions Diet: Diabetic Diet Activity: As Tolerated Driving: Do Not Drive (until feeling better ) Showering/Bathing: May Shower Notify Provider of: Fever, Increased Pain, Nausea and/or Vomiting Other/Special Instructions: Follow-up with primary care provider within 7 to 10 days of discharge, sooner if needed. Wear your oxygen as directed - 1L continuous. Continue home medications as directed. Your vitamin D was low here. You were already on supplementation for this. Stop your current supplementation and take the increased dose. Your primary care provider can follow-up with this in the future. Use your home pulse oximetry if you feel short of breath. Check it twice a day. Record this in a journal and bring this with to all medical appointments. This will help your primary care provider and determining when you can come off of oxygen. Continue to utilize your incentive spirometer (clear/blue device you inhale through) and Acapella (green tube you blow through) for 1 to 2 weeks or until symptoms resolve. Continue to isolate/quarantine for a total of 20 days from symptom onset. This would mean your quarantine would and at 1159 PM on 12/30/2020. You will likely be contacted by a account analyst from the [facility]. Follow their directions. Stay active but do not overdo it. Rest if needed. Should symptoms return or worsen contact primary care provider or return the emergency room. - Discharge Plan *PRESCRIPTION DRUG MONITORING PROGRAM REVIEWED*: No *COPY OF PRESCRIPTION DRUG MONITORING REPORT IN PATIENT ANGELI: No Prescriptions/Med Rec: Azithromycin 500 mg PO DAILY #1 tablet dexAMETHasone [Dexamethasone] 6 mg PO DAILY #7 tablet metFORMIN [Glucophage XR] 500 mg PO WITHDINNER #30 tab.er Albuterol [Proventil HFA] 2 puff INH Q2H PRN #1 inhaler PRN Reason: SOB/Wheezing Benzonatate [Tessalon Perle] 100 mg PO TID PRN #12 capsule PRN Reason: Cough Cholecalciferol (Vitamin D3) [Vitamin D3] 5,000 unit PO DAILY #30 cap Zinc Sulfate [Zincate] 220 mg PO DAILY #30 cap Home Medications: Home Meds Amitriptyline [Elavil] 50 mg PO BEDTIME 08/04/16 [History] Aspirin 81 mg PO DAILY 08/04/16 [History] Cranberry 500 mg PO DAILY 08/04/16 [History] Fish Oil/[place]-3 Fatty Acids [Fish Oil 1,000 MG] 1 each PO DAILY 08/04/16 [History] Metoprolol Tartrate [Lopressor] 50 mg PO BID 08/04/16 [History] Zolpidem [Ambien] 10 mg PO BEDTIME PRN 08/04/16 [History] Venlafaxine [Effexor XR] 37.5 mg PO DAILY 07/21/19 [History] estradioL [Estradiol] 1 mg PO DAILY 12/23/20 [History] hydroCHLOROthiazide [Hydrochlorothiazide] 25 mg PO DAILY 12/23/20 [History] Albuterol [Proventil HFA] 2 puff INH Q2H PRN #1 inhaler 12/25/20 [Rx] Azithromycin 500 mg PO DAILY #1 tablet 12/25/20 [Rx] Benzonatate [Tessalon Perle] 100 mg PO TID PRN #12 capsule 12/25/20 [Rx] Cholecalciferol (Vitamin D3) [Vitamin D3] 5,000 unit PO DAILY #30 cap 12/25/20 [Rx] Zinc Sulfate [Zincate] 220 mg PO DAILY #30 cap 12/25/20 [Rx] dexAMETHasone [Dexamethasone] 6 mg PO DAILY #7 tablet 12/25/20 [Rx] metFORMIN [Glucophage XR] 500 mg PO WITHDINNER #30 tab.er 12/25/20 [Rx] Oxygen Therapy Mode: Nasal Cannula Oxygen Flow Rate (L/min): 1 (1L continuous) Maintain SPO2% less than: 95 Maintain SpO2% greater than: 88 Patient Handouts: Type 2 Diabetes Mellitus, Diagnosis, Adult, Preventing Type 2 Diabetes Mellitus, COVID-19, How to Use an Incentive Spirometer, Home Oxygen U se, Adult, Prevent the Spread of COVID-19 if You Are Sick - [facility] Referrals: Melina Raman NP [Primary Care Provider] - 01/02/21 3:45 pm (Please check in by 3:30pm.) - Discharge Summary/Plan Comment DC Time >30 min.: Yes (45 mins ) - General Info Date of Service: 12/25/20 Admission Dx/Problem (Free Text: Admission Diagnosis/Problem Admission Diagnosis/Problem Hypoxia Functional Status: Reports: Pain Controlled, Tolerating Diet, Ambulating, Urinating, Incentive Spirometry, Other (Acapella ). Denies: New Symptoms - Review of Systems General: Reports: No Symptoms. Denies: Fever, Weakness, Fatigue, Malaise, Chills HEENT: Reports: No Symptoms. Denies: Headaches, Sore Throat Pulmonary: Reports: Cough. Denies: Shortness of Breath, Sputum, Wheezing Cardiovascular: Reports: Dyspnea on Exertion. Denies: Chest Pain, Palpitations, Edema Gastrointestinal: Reports: No Symptoms. Denies: Abdominal Pain, Constipation, Decreased Appetite, Diarrhea, Nausea, Vomiting Genitourinary: Reports: No Symptoms. Denies: Pain Musculoskeletal: Reports: No Symptoms Skin: Reports: No Symptoms. Denies: Cyanosis Neurological: Denies: Confusion, Numbness, Pre-Existing Deficit, Seizure, Syn cope, Tingling, Difficulty Walking, Weakness, Gait Disturbance Psychiatric: Reports: No Symptoms - Patient Data Vitals - Most Recent: Last Vital Signs Temp 97.5 F 12/25/20 07:50 Pulse 87 12/25/20 08:46 Resp 20 12/25/20 07:50 BP 139/70 12/25/20 08:46 Pulse Ox 90 L 12/25/20 07:50 Weight - Most Recent: 110.813 kg I&O - Last 24 hours: Intake & Output 12/24/20 12/25/20 12/25/20 22:59 06:59 14:59 Intake Total 2116 300 Output Total 6 1200 Balance 2110 -900 Lab Results - Last 24 hrs: Laboratory Results - last 24 hr 12/23/20 12/24/20 12/24/20 Range/Units 15:05 11:41 16:56 WBC (3.98-10.04) K/mm3 RBC (3.98-5.22) M/mm3 Hgb (11.2-15.7) gm/dl Hct (34.1-44.9) % MCV (79.4-94.8) fl MCH (25.6-32.2) pg MCHC (32.2-35.5) g/dl RDW Std Deviation (36.4-46.3) fL Plt Count (182-369) K/mm3 MPV (9.4-12.3) fl Neut % (Auto) (34.0-71.1) % Lymph % (Auto) (19.3-51.7) % Hale % (Auto) (4.7-12.5) % Eos % (Auto) (0.7-5.8) Baso % (Auto) (0.1-1.2) % Neut # (Auto) (1.56-6.13) K/mm3 Lymph # (Auto) (1.18-3.74) K/mm3 Hale # (Auto) (0.24-0.36) K/mm3 Eos # (Auto) (0.04-0.36) K/mm3 Baso # (Auto) (0.01-0.08) K/mm3 Manual Slide Review D-Dimer, Quantitative (0.19-0.50) mg/L Sodium (136-145) mEq/L Potassium (3.5-5.1) mEq/L Chloride (98-107) mEq/L Carbon Dioxide (21-32) mEq/L Anion Gap (5-15) BUN (7-18) mg/dL Creatinine (0.55-1.02) mg/dL Est Cr Clr Drug Dosing mL/min Estimated GFR (MDRD) (>60) mL/min BUN/Creatinine Ratio (14-18) Glucose (70-99) mg/dL POC Glucose 156 H 193 H (70-99) mg/dL Calcium (8.5-10.1) mg/dL Magnesium (1.8-2.4) mg/dL Total Bilirubin (0.2-1.0) mg/dL AST (15-37) U/L ALT (14-59) U/L Alkaline Phosphatase (46-116) U/L C-Reactive Protein (<1.0) mg/dL Total Protein (6.4-8.2) g/dl Albumin (3.4-5.0) g/dl Globulin gm/dL Albumin/Globulin Ratio (1-2) Procalcitonin <0.05 ng/mL 12/24/20 12/25/20 12/25/20 Range/Units 20:23 06:10 06:11 WBC 8.51 (3.98-10.04) K/mm3 RBC 4.49 (3.98-5.22) M/mm3 Hgb 12.9 (11.2-15.7) gm/dl Hct 38.1 (34.1-44.9) % MCV 84.9 (79.4-94.8) fl MCH 28.7 (25.6-32.2) pg MCHC 33.9 (32.2-35.5) g/dl RDW Std Deviation 38.5 (36.4-46.3) fL Plt Count 341 (182-369) K/mm3 MPV 9.6 (9.4-12.3) fl Neut % (Auto) 61.7 (34.0-71.1) % Lymph % (Auto) 25.1 (19.3-51.7) % Hale % (Auto) 11.0 (4.7-12.5) % Eos % (Auto) 0.1 L (0.7-5.8) Baso % (Auto) 0.6 (0.1-1.2) % Neut # (Auto) 5.24 (1.56-6.13) K/mm3 Lymph # (Auto) 2.14 (1.18-3.74) K/mm3 Hale # (Auto) 0.94 H (0.24-0.36) K/mm3 Eos # (Auto) 0.01 L (0.04-0.36) K/mm3 Baso # (Auto) 0.05 (0.01-0.08) K/mm3 Manual Slide Review Normal smear D-Dimer, Quantitative (0.19-0.50) mg/L Sodium (136-145) mEq/L Potassium (3.5-5.1) mEq/L Chloride (98-107) mEq/L Carbon Dioxide (21-32) mEq/L Anion Gap (5-15) BUN (7-18) mg/dL Creatinine (0.55-1.02) mg/dL Est Cr Clr Drug Dosing mL/min Estimated GFR (MDRD) (>60) mL/min BUN/Creatinine Ratio (14-18) Glucose (70-99) mg/dL POC Glucose 188 H 118 H (70-99) mg/dL Calcium (8.5-10.1) mg/dL Magnesium (1.8-2.4) mg/dL Total Bilirubin (0.2-1.0) mg/dL AST (15-37) U/L ALT (14-59) U/L Alkaline Phosphatase (46-116) U/L C-Reactive Protein (<1.0) mg/dL Total Protein (6.4-8.2) g/dl Albumin (3.4-5.0) g/dl Globulin gm/dL Albumin/Globulin Ratio (1-2) Procalcitonin ng/mL 05/26/21 05/26/21 Range/Units 06:11 06:11 WBC (3.98-10.04) K/mm3 RBC (3.98-5.22) M/mm3 Hgb (11.2-15.7) gm/dl Hct (34.1-44.9) % MCV (79.4-94.8) fl MCH (25.6-32.2) pg MCHC (32.2-35.5) g/dl RDW Std Deviation (36.4-46.3) fL Plt Count (182-369) K/mm3 MPV (9.4-12.3) fl Neut % (Auto) (34.0-71.1) % Lymph % (Auto) (19.3-51.7) % Hale % (Auto) (4.7-12.5) % Eos % (Auto) (0.7-5.8) Baso % (Auto) (0.1-1.2) % Neut # (Auto) (1.56-6.13) K/mm3 Lymph # (Auto) (1.18-3.74) K/mm3 Hale # (Auto) (0.24-0.36) K/mm3 Eos # (Auto) (0.04-0.36) K/mm3 Baso # (Auto) (0.01-0.08) K/mm3 Manual Slide Review D-Dimer, Quantitative 0.55 H (0.19-0.50) mg/L Sodium 142 (136-145) mEq/L Potassium 3.8 (3.5-5.1) mEq/L Chloride 108 H (98-107) mEq/L Carbon Dioxide 22 (21-32) mEq/L Anion Gap 15.8 H (5-15) BUN 13 (7-18) mg/dL Creatinine 0.7 (0.55-1.02) mg/dL Est Cr Clr Drug Dosing 91.42 mL/min Estimated GFR (MDRD) > 60 (>60) mL/min BUN/Creatinine Ratio 18.6 H (14-18) Glucose 120 H (70-99) mg/dL POC Glucose (70-99) mg/dL Calcium 8.1 L (8.5-10.1) mg/dL Magnesium 2.0 (1.8-2.4) mg/dL Total Bilirubin 0.2 (0.2-1.0) mg/dL AST 22 (15-37) U/L ALT 28 (14-59) U/L Alkaline Phosphatase 69 (46-116) U/L C-Reactive Protein 2.3 H* (<1.0) mg/dL Total Protein 6.7 (6.4-8.2) g/dl Albumin 2.6 L (3.4-5.0) g/dl Globulin 4.1 gm/dL Albumin/Globulin Ratio 0.6 L (1-2) Procalcitonin ng/mL Med Orders - Current: Current Medications Acetaminophen (Acetaminophen 325 Mg Tab) 650 mg PO Q4H PRN PRN Reason: Pain (Mild 1-3)/fever Last Admin: 12/24/20 20:11 Dose: 650 mg Documented by: Albuterol (Albuterol 6.7 Gm Inhaler) 0 gm INH Q2H PRN PRN Reason: SOB/Wheezing Last Admin: 12/25/20 07:44 Dose: 2 puff Documented by: Amitriptyline HCl (Amitriptyline 25 Mg Tab) 50 mg PO BEDTIME [facility] Last Admin: 12/24/20 20:10 Dose: 50 mg Documented by: Aspirin (Aspirin 81 Mg Tab.Chew) 81 mg PO DAILY [facility] Last Admin: 12/25/20 08:45 Dose: 81 mg Documented by: Benzonatate (Benzonatate 100 Mg Cap) 200 mg PO TID PRN PRN Reason: Cough Last Admin: 12/23/20 16:46 Dose: 200 mg Documented by: Cholecalciferol (Cholecalciferol (Vitamin D3) 5,000 Unit Cap) 5,000 unit PO DAILY [facility] Last Admin: 12/25/20 08:46 Dose: 5,000 unit Documented by: Dexamethasone (Dexamethasone 4 Mg Tab) 6 mg PO DAILY [facility] Stop: 01/01/21 09:01 Last Admin: 12/25/20 08:46 Dose: 6 mg Documented by: Docusate Sodium (Docusate Sodium 100 Mg Cap) 100 mg PO BID PRN PRN Reason: Constipation Last Admin: 12/23/20 16:46 Dose: 100 mg Documented by: Enoxaparin Sodium (Enoxaparin 40 Mg/0.4 Ml Syringe) 40 mg SUBCUT DAILY [facility] Last Admin: 12/25/20 08:44 Dose: 40 mg Documented by: Estradiol (Estradiol 0.5 Mg Tab) 1 mg PO DAILY [facility] Last Admin: 12/25/20 08:46 Dose: 1 mg Documented by: Famotidine (Famotidine 20 Mg Tab) 20 mg PO BID [facility] Last Admin: 12/25/20 08:46 Dose: 20 mg Documented by: Guaifenesin/Phenylephrine HCl (Guaifenesin/Dextromethorphan 100-10 Mg/5 Ml Soln 5 Ml Cup) 10 ml PO TID@0700,1400,2100 [facility] Last Admin: 12/25/20 08:13 Dose: Not Given Documented by: Azithromycin 500 mg/ Sodium (Chloride) 250 mls @ 250 mls/hr IV Q24H [facility] Stop: 12/25/20 15:59 Last Admin: 12/24/20 14:52 Dose: 250 mls/hr Documented by: Insulin Human Lispro (Insulin Lispro 100 Unit/Ml 10 Ml Vial) 0 unit SUBCUT QIDACANDBED [facility]; Protocol Last Admin: 12/25/20 07:50 Dose: Not Given Documented by: Magnesium Hydroxide (Magnesium Hydroxide 400 Mg/5 Ml Susp 30 Ml Cup) 30 ml PO Q12H PRN PRN Reason: Constipation Metoprolol Tartrate (Metoprolol Tartrate 50 Mg Tab) 50 mg PO BID [facility] Last Admin: 12/25/20 08:46 Dose: 50 mg Documented by: Ondansetron HCl (Ondansetron 4 Mg/2 Ml Sdv) 4 mg IV Q6H PRN PRN Reason: Nausea/Vomiting Sodium Chloride (Sodium Chloride 0.9% 10 Ml Syringe) 10 ml FLUSH ASDIRECTED PRN PRN Reason: Keep Vein Open Last Admin: 12/23/20 11:43 Dose: 10 ml Documented by: Venlafaxine HCl (Venlafaxine 37.5 Mg Cap.Er) 37.5 mg PO DAILY [facility] Last Admin: 12/25/20 08:46 Dose: 37.5 mg Documented by: Zinc Sulfate (Zinc Sulfate 220 Mg Cap) 220 mg PO DAILY [facility] Last Admin: 12/25/20 08:45 Dose: 220 mg Documented by: Zolpidem Tartrate (Zolpidem 10 Mg Tab) 10 mg PO BEDTIME [facility] Last Admin: 12/24/20 20:07 Dose: 10 mg Documented by: Discontinued Medications Acetaminophen (Acetaminophen 325 Mg Tab) 975 mg PO NOW ONE Stop: 12/23/20 13:45 Last Admin: 12/23/20 14:17 Dose: 975 mg Documented by: Dexamethasone (Dexamethasone 4 Mg Tab) 4 mg PO ONETIME ONE Stop: 12/23/20 11:54 Last Admin: 12/23/20 12:42 Dose: 4 mg Documented by: Potassium Chloride/Sodium Chloride (Normal Saline With 40 Meq Kcl) 1,000 mls @ 100 mls/hr IV ASDIRECTED KRISTI Last Admin: 12/24/20 02:40 Dose: 100 mls/hr Documented by: Sodium Chloride (Normal Saline) 500 mls @ 999 mls/hr IV .BOLUS ONE Stop: 12/23/20 15:19 Last Admin: 12/23/20 16:35 Dose: 999 mls/hr Documented by: - Exam Quality Assessment: Reports: Supplemental Oxygen (1L ), DVT Prophylaxis. Denies: Urine Catheter General: Reports: Alert, Oriented, Cooperative, No Acute Distress HEENT: Reports: Pupils Equal, Pupils Reactive, Mucous Membr. Moist/[place] Neck: Reports: Supple, Trachea Midline Lungs: Reports: Clear to Auscultation, Normal Respiratory Effort, Decreased Breath Sounds Cardiovascular: Reports: Regular Rate, Regular Rhythm GI/Abdominal Exam: Normal Bowel Sounds, Soft, Non-Tender, No Distention (Female) Exam: Deferred Rectal (Female) Exam: Deferred Back Exam: Reports: Normal Inspection, Full Range of Motion Extremities: Normal Inspection, Normal Range of Motion, Non-Tender, No Pedal Edema, Normal Capillary Refill Skin: Reports: Warm, Dry, Intact Neurological: Reports: No New Focal Deficit Psy/Mental Status: Reports: Alert, Normal Affect, Normal Mood <Yeison Crowe - Last Filed: 12/25/20 14:57> Discharge Summary - Referral to Home Health Primary Care Physician: Melina Raman NP - Patient Summary/Data Consults: Consultations 12/23/20 14:38 Respiratory Care Assess and Treatment [CONS] Routine 12/23/20 15:13 Consult to Pe Electrical Engineer [CONS] Routine 12/24/20 10:59 Consult to Diabetic Nurse Specialist [CONS] Routine Hospital Course: I have seen and examined the patient independently of Teddy Aguilar PA-C, and have discussed the case with him. I have reviewed plan as outlined by him. I agree with the orders as outlined by him. Please see orders. - Patient Data Vitals - Most Recent: Last Vital Signs Temp 36.4 C 12/25/20 07:50 Pulse 87 12/25/20 08:46 Resp 20 12/25/20 07:50 BP 139/70 12/25/20 08:49 Pulse Ox 87 L 12/25/20 10:20 I&O - Last 24 hours: Intake & Output 12/24/20 12/25/20 12/25/20 22:59 06:59 14:59 Intake Total 2116 300 1130 Output Total 6 1200 1100 Balance 2110 -900 30 Lab Results - Last 24 hrs: Laboratory Results - last 24 hr 12/23/20 12/24/20 12/24/20 Range/Units 15:05 16:56 20:23 WBC (3.98-10.04) K/mm3 RBC (3.98-5.22) M/mm3 Hgb (11.2-15.7) gm/dl Hct (34.1-44.9) % MCV (79.4-94.8) fl MCH (25.6-32.2) pg MCHC (32.2-35.5) g/dl RDW Std Deviation (36.4-46.3) fL Plt Count (182-369) K/mm3 MPV (9.4-12.3) fl Neut % (Auto) (34.0-71.1) % Lymph % (Auto) (19.3-51.7) % Hale % (Auto) (4.7-12.5) % Eos % (Auto) (0.7-5.8) Baso % (Auto) (0.1-1.2) % Neut # (Auto) (1.56-6.13) K/mm3 Lymph # (Auto) (1.18-3.74) K/mm3 Hale # (Auto) (0.24-0.36) K/mm3 Eos # (Auto) (0.04-0.36) K/mm3 Baso # (Auto) (0.01-0.08) K/mm3 Manual Slide Review D-Dimer, Quantitative (0.19-0.50) mg/L Sodium (136-145) mEq/L Potassium (3.5-5.1) mEq/L Chloride (98-107) mEq/L Carbon Dioxide (21-32) mEq/L Anion Gap (5-15) BUN (7-18) mg/dL Creatinine (0.55-1.02) mg/dL Est Cr Clr Drug Dosing mL/min Estimated GFR (MDRD) (>60) mL/min BUN/Creatinine Ratio (14-18) Glucose (70-99) mg/dL POC Glucose 193 H 188 H (70-99) mg/dL Calcium (8.5-10.1) mg/dL Magnesium (1.8-2.4) mg/dL Total Bilirubin (0.2-1.0) mg/dL AST (15-37) U/L ALT (14-59) U/L Alkaline Phosphatase (46-116) U/L C-Reactive Protein (<1.0) mg/dL Total Protein (6.4-8.2) g/dl Albumin (3.4-5.0) g/dl Globulin gm/dL Albumin/Globulin Ratio (1-2) Procalcitonin <0.05 ng/mL 12/25/20 12/25/20 12/25/20 Range/Units 06:10 06:11 06:11 WBC 8.51 (3.98-10.04) K/mm3 RBC 4.49 (3.98-5.22) M/mm3 Hgb 12.9 (11.2-15.7) gm/dl Hct 38.1 (34.1-44.9) % MCV 84.9 (79.4-94.8) fl MCH 28.7 (25.6-32.2) pg MCHC 33.9 (32.2-35.5) g/dl RDW Std Deviation 38.5 (36.4-46.3) fL Plt Count 341 (182-369) K/mm3 MPV 9.6 (9.4-12.3) fl Neut % (Auto) 61.7 (34.0-71.1) % Lymph % (Auto) 25.1 (19.3-51.7) % Hale % (Auto) 11.0 (4.7-12.5) % Eos % (Auto) 0.1 L (0.7-5.8) Baso % (Auto) 0.6 (0.1-1.2) % Neut # (Auto) 5.24 (1.56-6.13) K/mm3 Lymph # (Auto) 2.14 (1.18-3.74) K/mm3 Hale # (Auto) 0.94 H (0.24-0.36) K/mm3 Eos # (Auto) 0.01 L (0.04-0.36) K/mm3 Baso # (Auto) 0.05 (0.01-0.08) K/mm3 Manual Slide Review Normal smear D-Dimer, Quantitative 0.55 H (0.19-0.50) mg/L Sodium (136-145) mEq/L Potassium (3.5-5.1) mEq/L Chloride (98-107) mEq/L Carbon Dioxide (21-32) mEq/L Anion Gap (5-15) BUN (7-18) mg/dL Creatinine (0.55-1.02) mg/dL Est Cr Clr Drug Dosing mL/min Estimated GFR (MDRD) (>60) mL/min BUN/Creatinine Ratio (14-18) Glucose (70-99) mg/dL POC Glucose 118 H (70-99) mg/dL Calcium (8.5-10.1) mg/dL Magnesium (1.8-2.4) mg/dL Total Bilirubin (0.2-1.0) mg/dL AST (15-37) U/L ALT (14-59) U/L Alkaline Phosphatase (46-116) U/L C-Reactive Protein (<1.0) mg/dL Total Protein (6.4-8.2) g/dl Albumin (3.4-5.0) g/dl Globulin gm/dL Albumin/Globulin Ratio (1-2) Procalcitonin ng/mL 12/25/20 12/25/20 Range/Units 06:11 11:06 WBC (3.98-10.04) K/mm3 RBC (3.98-5.22) M/mm3 Hgb (11.2-15.7) gm/dl Hct (34.1-44.9) % MCV (79.4-94.8) fl MCH (25.6-32.2) pg MCHC (32.2-35.5) g/dl RDW Std Deviation (36.4-46.3) fL Plt Count (182-369) K/mm3 MPV (9.4-12.3) fl Neut % (Auto) (34.0-71.1) % Lymph % (Auto) (19.3-51.7) % Hale % (Auto) (4.7-12.5) % Eos % (Auto) (0.7-5.8) Baso % (Auto) (0.1-1.2) % Neut # (Auto) (1.56-6.13) K/mm3 Lymph # (Auto) (1.18-3.74) K/mm3 Hale # (Auto) (0.24-0.36) K/mm3 Eos # (Auto) (0.04-0.36) K/mm3 Baso # (Auto) (0.01-0.08) K/mm3 Manual Slide Review D-Dimer, Quantitative (0.19-0.50) mg/L Sodium 142 (136-145) mEq/L Potassium 3.8 (3.5-5.1) mEq/L Chloride 108 H (98-107) mEq/L Carbon Dioxide 22 (21-32) mEq/L Anion Gap 15.8 H (5-15) BUN 13 (7-18) mg/dL Creatinine 0.7 (0.55-1.02) mg/dL Est Cr Clr Drug Dosing 91.42 mL/min Estimated GFR (MDRD) > 60 (>60) mL/min BUN/Creatinine Ratio 18.6 H (14-18) Glucose 120 H (70-99) mg/dL POC Glucose 110 H (70-99) mg/dL Calcium 8.1 L (8.5-10.1) mg/dL Magnesium 2.0 (1.8-2.4) mg/dL Total Bilirubin 0.2 (0.2-1.0) mg/dL AST 22 (15-37) U/L ALT 28 (14-59) U/L Alkaline Phosphatase 69 (46-116) U/L C-Reactive Protein 2.3 H* (<1.0) mg/dL Total Protein 6.7 (6.4-8.2) g/dl Albumin 2.6 L (3.4-5.0) g/dl Globulin 4.1 gm/dL Albumin/Globulin Ratio 0.6 L (1-2) Procalcitonin ng/mL Med Orders - Current: Current Medications Discontinued Medications Acetaminophen (Acetaminophen 325 Mg Tab) 975 mg PO NOW ONE Stop: 12/23/20 13:45 Last Admin: 12/23/20 14:17 Dose: 975 mg Documented by: Acetaminophen (Acetaminophen 325 Mg Tab) 650 mg PO Q4H PRN PRN Reason: Pain (Mild 1-3)/fever Last Admin: 12/24/20 20:11 Dose: 650 mg Documented by: Albuterol (Albuterol 6.7 Gm Inhaler) 0 gm INH Q2H PRN PRN Reason: SOB/Wheezing Last Admin: 12/25/20 07:44 Dose: 2 puff Documented by: Amitriptyline HCl (Amitriptyline 25 Mg Tab) 50 mg PO BEDTIME [facility] Last Admin: 12/24/20 20:10 Dose: 50 mg Documented by: Aspirin (Aspirin 81 Mg Tab.Chew) 81 mg PO DAILY [facility] Last Admin: 12/25/20 08:45 Dose: 81 mg Documented by: Benzonatate (Benzonatate 100 Mg Cap) 200 mg PO TID PRN PRN Reason: Cough Last Admin: 12/23/20 16:46 Dose: 200 mg Documented by: Cholecalciferol (Cholecalciferol (Vitamin D3) 5,000 Unit Cap) 5,000 unit PO DAILY [facility] Last Admin: 12/25/20 08:46 Dose: 5,000 unit Documented by: Dexamethasone (Dexamethasone 4 Mg Tab) 4 mg PO ONETIME ONE Stop: 12/23/20 11:54 Last Admin: 12/23/20 12:42 Dose: 4 mg Documented by: Dexamethasone (Dexamethasone 4 Mg Tab) 6 mg PO DAILY [facility] Stop: 01/01/21 09:01 Last Admin: 12/25/20 08:46 Dose: 6 mg Documented by: Docusate Sodium (Docusate Sodium 100 Mg Cap) 100 mg PO BID PRN PRN Reason: Constipation Last Admin: 12/23/20 16:46 Dose: 100 mg Documented by: Enoxaparin Sodium (Enoxaparin 40 Mg/0.4 Ml Syringe) 40 mg SUBCUT DAILY [facility] Last Admin: 12/25/20 08:44 Dose: 40 mg Documented by: Estradiol (Estradiol 0.5 Mg Tab) 1 mg PO DAILY [facility] Last Admin: 12/25/20 08:46 Dose: 1 mg Documented by: Famotidine (Famotidine 20 Mg Tab) 20 mg PO BID [facility] Last Admin: 12/25/20 08:46 Dose: 20 mg Documented by: Guaifenesin/Phenylephrine HCl (Guaifenesin/Dextromethorphan 100-10 Mg/5 Ml Soln 5 Ml Cup) 10 ml PO TID@0700,1400,2100 [facility] Last Admin: 12/25/20 08:13 Dose: Not Given Documented by: Potassium Chloride/Sodium Chloride (Normal Saline With 40 Meq Kcl) 1,000 mls @ 100 mls/hr IV ASDIRECTED [facility] Last Admin: 12/24/20 02:40 Dose: 100 mls/hr Documented by: Azithromycin 500 mg/ Sodium (Chloride) 250 mls @ 250 mls/hr IV Q24H [facility] Stop: 12/25/20 15:59 Last Admin: 12/24/20 14:52 Dose: 250 mls/hr Documented by: Sodium Chloride (Normal Saline) 500 mls @ 999 mls/hr IV .BOLUS ONE Stop: 12/23/20 15:19 Last Admin: 12/23/20 16:35 Dose: 999 mls/hr Documented by: Insulin Human Lispro (Insulin Lispro 100 Unit/Ml 10 Ml Vial) 0 unit SUBCUT QIDACANDBED [facility]; Protocol Last Admin: 12/25/20 11:17 Dose: Not Given Documented by: Magnesium Hydroxide (Magnesium Hydroxide 400 Mg/5 Ml Susp 30 Ml Cup) 30 ml PO Q12H PRN PRN Reason: Constipation Metoprolol Tartrate (Metoprolol Tartrate 50 Mg Tab) 50 mg PO BID [facility] Last Admin: 12/25/20 08:46 Dose: 50 mg Documented by: Ondansetron HCl (Ondansetron 4 Mg/2 Ml Sdv) 4 mg IV Q6H PRN PRN Reason: Nausea/Vomiting Sodium Chloride (Sodium Chloride 0.9% 10 Ml Syringe) 10 ml FLUSH ASDIRECTED PRN PRN Reason: Keep Vein Open Last Admin: 12/23/20 11:43 Dose: 10 ml Documented by: Venlafaxine HCl (Venlafaxine 37.5 Mg Cap.Er) 37.5 mg PO DAILY [facility] Last Admin: 12/25/20 08:46 Dose: 37.5 mg Documented by: Zinc Sulfate (Zinc Sulfate 220 Mg Cap) 220 mg PO DAILY [facility] Last Admin: 12/25/20 08:45 Dose: 220 mg Documented by: Zolpidem Tartrate (Zolpidem 10 Mg Tab) 10 mg PO BEDTIME [facility] Last Admin: 12/24/20 20:07 Dose: 10 mg Documented by:
== END 2020-12-25 12:30 | disposition home or self-care (01) | DRG 177 ==
LOC: JD.ED 11:14 → JD.MS 14:03
PROVIDERS: ADMIT Internal Medicine; ATTEND Internal Medicine
PROC: 8E0ZXY6 Isolation (ICD-10-PCS; principal; 2020-12-23)
DX: U07.1 COVID-19 (principal); J12.82 Pneumonia due to coronavirus disease 2019; E87.2 Acidosis; I10 Essential (primary) hypertension; I45.6 Pre-excitation syndrome; K21.9 Gastro-esophageal reflux disease without esophagitis; J45.909 Unspecified asthma, uncomplicated; F41.9 Anxiety disorder, unspecified; F32.9 Major depressive disorder, single episode, unspecified; E66.9 Obesity, unspecified; G47.9 Sleep disorder, unspecified; E88.09 Other disorders of plasma-protein metabolism, not elsewhere classified; H54.7 Unspecified visual loss; E87.6 Hypokalemia; R79.82 Elevated C-reactive protein (CRP); E55.9 Vitamin D deficiency, unspecified; E11.65 Type 2 diabetes mellitus with hyperglycemia; G89.29 Other chronic pain; M54.9 Dorsalgia, unspecified; Z79.82 Long term (current) use of aspirin; Z79.899 Other long term (current) drug therapy; Z79.84 Long term (current) use of oral hypoglycemic drugs; Z88.0 Allergy status to penicillin; Z88.8 Allergy status to other drugs, medicaments and biological substances; Z90.710 Acquired absence of both cervix and uterus
CPT/HCPCS: 36415; 71045; 71045-26; 80053; 82306; 82947; 83036; 83605; 83735; 83880; 84145; 84484; 85025; 85379; 86140; 93005; 93010; 94640; 94668; 94762; 96365; 99223; 99233; 99239; 99285; 99285-25; A9270-GY; J0456; J1650; J1815-GY; J3480; J7030; J7050; J8540